=== PATIENT | female | born 1965 | race Two or more races ===

== ENCOUNTER 2018-07-27 11:44 | Day surgery (SDC) | payer BC, OTHER ==
[2018-07-26 11:04] VITALS: BMI 30.9
--- NOTE | 2018-07-27 09:22 | HP ---
History & Physical Update - History History: No Change - Physical Physical: No Change - Assessment Assessment: No Change - Plan Plan: No Change (patient with rectal cancer , at 8 cms. from anal verge , not palpated on rectal examination, for examination under anesthesia.)
[2018-07-27] MEDS ORDERED: MIDAZOLAM HCL 2 MG/2 ML SINGLE DOSE VIAL ONE (13:42)
--- NOTE | 2018-07-27 14:09 | OP ---
Operative Note - Note: Operative Date: 07/27/18 Pre-Operative Diagnosis: Carcinoma of rectum, fibroid uterus, anemia. Operation: Examination under anesthesia, and proctosigmoidoscopy . Findings: Large fibroid uterus, palpable transabdominally , in the suprapubic area. Tumor in rectum , left lateral wall, at 9 cm,. from anal verge to 11cm., 2-3 cm. in length. Surgeon: Elisabeth Mancilla Anesthesiologist/CITRIX LEAD: Anita Loza Anesthesia: MAC Specimens Removed: None Estimated Blood Loss (mls): 0 Operative Report Dictated: Yes
[2018-07-27] MEDS ORDERED: oxyCODONE HCL 5 MG TABLET PO PRN (14:18)
[2018-07-27] MEDS ORDERED: ONDANSETRON 4 MG/2 ML VIAL IVPUSH PRN (14:18)
[2018-07-27 15:30] VITALS: BP 136/85; PULSE 92; TEMP 98.1
--- NOTE | 2018-07-28 10:28 | EKG ---
Test Reason : Blood Pressure : / mmHG Vent. Rate : 088 BPM Atrial Rate : 088 BPM P-R Int : 158 ms QRS Dur : 092 ms QT Int : 382 ms P-R-T Axes : 065 038 000 degrees QTc Int : 462 ms NORMAL SINUS RHYTHM POSSIBLE LEFT ATRIAL ENLARGEMENT LEFT VENTRICULAR HYPERTROPHY NONSPECIFIC ST ABNORMALITY ABNORMAL ECG NO PREVIOUS ECGS AVAILABLE Confirmed by MARINA GEORGE MD ([id number]) on 07/28/2018 10:28:23 AM Referred By: YON MONTE Confirmed By:MARINA GEORGE MD
--- NOTE | 2018-07-28 11:33 | OP ---
DATE OF OPERATION: 07/27/2018 PREOPERATIVE DIAGNOSES: Carcinoma of the rectum, large fibroid uterus, and anemia. POSTOPERATIVE DIAGNOSES: Carcinoma of the rectum, large fibroid uterus, and anemia. OPERATIVE PROCEDURE: Examination under anesthesia and proctosigmoidoscopy. SURGEON: Artur Mancilla MD ANESTHESIA: General anesthesia. OPERATIVE DESCRIPTION: This 52-year-old woman was found to have tumor at 8-10 cm from the anal verge. She was being worked up. She also has a large fibroid uterus with multiple nodules requiring hysterectomy. So, therefore, patient was brought in for examination under anesthesia. She was also scheduled for an MRI and a consultative ultrasound. Patient was given IV sedation, placed in lithotomy position. A bimanual examination was done, with a finger in the rectum, and palpating the suprapubic area. Patient was found to have a large tumor in the suprapubic area, confirming the presence of a large fibroid uterus, which would obstruct and occlude the prerectal space,during the rectal operation. A proctosigmoidoscopy was done with a rigid sigmoidoscope. On examination, the anal sphincter was normal. At about 9 cm from the anal verge, there was a tumor found in the left half of the rectal wall. The mucosa was elevated , raised, and easily bleeding. It occupied less than half the circumference. It extended to a length of about 11 cm from the anal verge. That is about 2 cm in length. The rest of the examination was normal. The patient is scheduled for an MRI and also will get radiation oncology consultation. This tumor is, therefore, amenable to low anterior resection, along with hysterectomy. Martin TORREZ/[id number] MTDD
== END 2018-07-27 15:30 | disposition home or self-care (01) ==
LOC: JASU-SURG 11:44
PROVIDERS: ATTEND Specialist
PROC: 0DJD8ZZ Inspection of Lower Intestinal Tract, Via Natural or Artificial Opening Endoscopic (ICD-10-PCS; principal; 2018-07-27 13:00)
DX: C20 Malignant neoplasm of rectum (principal); D25.9 Leiomyoma of uterus, unspecified; D64.9 Anemia, unspecified
CPT/HCPCS: 84703; 93005; 93010

== ENCOUNTER 2018-12-14 06:38 | Inpatient (IN) | payer BC, OTHER ==
[2018-12-13 17:25] VITALS: BMI 32.2
[2018-12-14] MEDS ORDERED: ROPIVACAINE HCL 0.5% 30ML VIAL ONE (07:21)
[2018-12-14] MEDS ORDERED: DEXAMETHASONE SOD PHOSPHATE/PF 10 MG/ML SDV ONE (07:21)
[2018-12-14] MEDS ORDERED: MIDAZOLAM HCL 2 MG/2 ML SINGLE DOSE VIAL ONE ×2 (07:22)
--- NOTE | 2018-12-14 08:02 | HP ---
History & Physical Update - History History: No Change - Physical Physical: No Change - Assessment Assessment: No Change - Plan Plan: No Change (Initial H&P is complete and accurate from 12/11/[address] Mireya Garay. Will be scanned into her electronic chart JATINDER. No new complaints or medications.)
[2018-12-14] MEDS ORDERED: CEFAZOLIN 2 GM/D5W 2 GM/50 ML ML IVPB ONE (08:03)
[2018-12-14] MEDS ORDERED: DEXAMETHASONE SOD PHOSPHATE 4 MG/1 ML VIAL ONE ×2 (08:42→12:16)
[2018-12-14] MEDS ORDERED: fentaNYL CITRATE 250 MCG/5 ML VIAL ONE (08:43)
[2018-12-14] MEDS ORDERED: LIDOCAINE HCL/PF 2% SDV 5ML VIAL ONE (08:44)
[2018-12-14] MEDS ORDERED: ceFAZolin SODIUM 1 GM VIAL ONE (08:44)
[2018-12-14] MEDS ORDERED: ROCURONIUM BROMIDE 50 MG/5 ML VIAL ONE ×3 (08:45→11:47)
[2018-12-14] MEDS ORDERED: ceFAZolin SODIUM 1 GM VIAL IVPB ONE (08:45)
[2018-12-14] MEDS ORDERED: PROPOFOL 20 ML ONE (08:45)
--- NOTE | 2018-12-14 10:16 | OP ---
Operative Note - Note: Operative Date: 12/14/18 Pre-Operative Diagnosis: Leiomyoma of the uterus Operation: Total Abdominal hysterectomy / Bilateral salpingoophorectomy Findings: Enlarged fibroid uterus with irregular shape Post-Operative Diagnosis: Same as Pre-op Surgeon: Verona Leija Special Police Officer: Bebo Quinteros Anesthesia: General Specimens Removed: Uterus / Cervix / Fallopian tubes / Ovaries Estimated Blood Loss (mls): 100
--- NOTE | 2018-12-14 10:56 | SURG ---
Surgery Rodding Anode Worker Note Rodding Anode Worker: Bebo Quinteros PA-C Date of Service: 12/14/18 Diagnosis: Leiomyoma of the uterus Procedure: Total Abdominal hysterectomy / Bilateral salpingoophorectomy I was present for the entirety of the operative procedure. For further detail, please refer to operative report. Visit type - Case Type Case Type: Scheduled - New patient This patient is new to me today: Yes Date on this admission: 12/14/18
[2018-12-14] MEDS ORDERED: PHENYLEPHRINE HCL 10 MG/1 ML SINGLE DOSE VIAL ONE (11:51)
[2018-12-14] MEDS ORDERED: NEOSTIGMINE METHYLSULFATE 0.5 MG/ML - 10 ML MDV ONE (12:30)
[2018-12-14] MEDS ORDERED: GLYCOPYRROLATE 0.2 MG/1 ML VIAL ONE (12:31)
--- NOTE | 2018-12-14 12:52 | OP ---
Operative Note - Note: Operative Date: 12/14/18 Pre-Operative Diagnosis: Carcinoma of rectosigmoid, s/p Chemoradiation. Operation: Low anterior resection of rectal tumor, with rectosigmoid anastamosis. Findings: Lesion in upper rectum. Post-Operative Diagnosis: Same as Pre-op Surgeon: Elisabeth Mancilla Anesthesiologist/PIE ICER MACHINE: Dez King Anesthesia: General Specimens Removed: 1) Anorectal resection. 2) Anastamotic doughnut.. Estimated Blood Loss (mls): 150 Operative Report Dictated: Yes
[2018-12-14] MEDS ORDERED: fentaNYL 1000 MCG/50 ML *PCA* DISP.SYRIN PCA SCH (13:00)
[2018-12-14] MEDS: HYDROmorphone *PCA* 10MG/50ML DISP.SYRIN PCA SCH ×2 (13:10→23:11)
[2018-12-14] MEDS ORDERED: ONDANSETRON 4 MG/2 ML VIAL IVPUSH PRN (13:11)
[2018-12-14] MEDS ORDERED: PROMETHAZINE HCL 25 MG/1 ML VIAL IVPB PRN ×2 (13:11)
[2018-12-14] MEDS ORDERED: DEXAMETHASONE SOD PHOSPHATE 4 MG/1 ML VIAL IVPUSH PRN (13:11)
[2018-12-14] MEDS: DEXTROSE 5%-LACTATED RINGERS 1,000 ML IV SCH (22:43)
--- NOTE | 2018-12-15 08:40 | PN ---
Progress Note (short form) - Note Progress Note: Anesthesia/pain Pt seen and examined S:Alert and awake comfortable O: Vital Signs Temperature 98.3 F 12/15/18 07:06 Pulse Rate 119 H 12/15/18 07:06 Respiratory Rate 20 12/15/18 07:06 Blood Pressure 129/75 12/15/18 07:06 O2 Sat by Pulse Oximetry (%) 99 12/14/18 21:00 A/P: s/pTAH BSO LAR Doing well post op Uses BRUSH CUTTER Continue current care Michael Boland MD
--- NOTE | 2018-12-15 08:51 | OP ---
DATE OF OPERATION: 12/14/2018 ADDENDUM PROCEDURE: Low anterior resection of rectal tumor with rectosigmoid anastomosis and a total mesorectal excision dissection. The pelvic cavity was inspected, and there was no evidence of metastases of the rectal tumor. The liver was normal. The diaphragm was normal. The small intestine and the rest of the large intestine and intra-abdominal peritoneum was normal with no evidence of tumor. Martin [id number]
[2018-12-15] MEDS: ENOXAPARIN NA (PORCINE) 30 MG/0.3 ML DISP.SYRIN SQ SCH (09:54)
[2018-12-15 10:21] LABS: HEMATOCRIT 31.7 % (32.4-45.2); HEMOGLOBIN 10.9 GM/dL (10.7-15.3); MCH 31.4 pg (25.7-33.7); MCHC 34.3 g/dl (32.0-36.0); MEAN CELL VOLUME 91.5 fl (80-96); MEAN PLT VOLUME 8.7 fl (7.5-11.1); PLATELET COUNT 215 K/MM3 (134-434); RBC 3.47 M/mm3 (3.60-5.2); RDW 15.3 % (11.6-15.6)
[2018-12-15 10:51] LABS: ANION GAP 6 MMOL/L (8-16); BLOOD UREA NITROGEN 8 mg/dL (7-18); CALCIUM 8.1 mg/dL (8.5-10.1); CHLORIDE 101 mmol/L (98-107); CO2 31 mmol/L (21-32); CREATININE 0.6 mg/dL (0.55-1.3); GLUCOSE,RANDOM 115 mg/dL (74-106); POTASSIUM 3.5 mmol/L (3.5-5.1); SODIUM 137 mmol/L (136-145)
[2018-12-15] MEDS: DEXTROSE 5%-LACTATED RINGERS 1,000 ML IV SCH ×3 (10:57→22:05)
--- NOTE | 2018-12-15 10:59 | OP ---
DATE OF OPERATION: 12/14/2018 PREOPERATIVE DIAGNOSIS: Carcinoma of the rectum and rectosigmoid status post chemoradiation. POSTOPERATIVE DIAGNOSES: 1. Carcinoma of the rectum and rectosigmoid status post chemoradiation. 2. Fibroid uterus. OPERATIVE PROCEDURE: Low anterior resection of the rectal tumor/rectosigmoid, with colorectal anastomosis. SURGEON: Artur Mancilla MD SENIOR RECEPTIONIST: Harlan Hoyos MD ANESTHESIA: General anesthesia. OPERATIVE DESCRIPTION: This 53-year-old woman was diagnosed to have rectal cancer 8-12 cm from the anal verge in the upper third of the rectum as well as rectosigmoid. A previous workup included post-treatment MRI that showed no gross tumor in the rectum. There were no suspicious lymph nodes as well. Patient was brought in for low anterior resection of the rectal tumor with a TME excision. Patient also had a large fibroid uterus which was planned to be removed at this procedure by Dr. Leija. Patient had bowel prep preoperatively. Consent was obtained. Risks , benefits, and complications had been discussed with the patient. Patient was given general anesthesia, placed in a partial lithotomy position. Brown catheter was placed in the bladder. The perineum and the abdomen were painted and draped. Dr. Leija did her abdominal hysterectomy, removing the large fibroid uterus. I proceeded to do my part of the procedure after the hysterectomy, and the large fibroid uterus was removed. First, the inferior mesenteric artery was identified at its origin. All fibrofatty tissue around the inferior mesenteric artery was dissected and moved towards the pelvis. This was followed all the way to the sigmoid branches, which were preserved intact. The superior hemorrhoidal artery was ligated, just after the branches to the sigmoid, of the inferior mesentric artery. This was divided between ligatures. This dissection of the mesentery and blood vessels, was then carried all the way to the distal sigmoid, creating a line of demarcation, of the specimen of rectosigmoid to be removed along with its mesentery and lymph nodes, creating a TME resection. All fibrofatty tissue between the iliacs and the posterior abdominal wall, in the sacral hollow, was removed and brought out along with the specimen. Both ureters were identified, and maintained intact. All fibrofatty connective tissue, between the 2 ureters was also removed going down towards the pelvis. Posteriorly, dissection was carried into the sacral hollow, and the dissection was carried all the way down behind the rectum along the sacrococcygeus towards the anal canal. This was then carried around laterally along the lateral pelvic wall, leaving the ureters intact and in continuity. All vessels were then divided between clips, LigaSure, or between 2-0 silk ligature. As the dissection was carried into the pelvis, the rectosigmoid was pulled up cephalad above the pelvis. This was carried down laterally, dissecting lateraaly from the sacral hollow, dividing the middle colic vessels between ligatures and the LigaSure. Anteriorly, the vaginal cuff was left intact after hysterectomy. Dissection was carried around the rectum anteriorly, and freeing the vaginal wall from the rectum. Prior to the start of surgery, a rectal examination was done, and no palpable tumor was identified for at least 7 -8 cm from the anal verge. In the pelvis there was bulky, indurated area, but no gross tumor was seen or palpated. After securing the dissection around the rectum anteriorly, this was carried all the way down to the lower reaches of the rectum. Here the fibrofatty tissue around the rectum was divided, and the dissection carried towards the rectum. Once this was done, the rectum was identified. After placing the finger in the rectum, the dissection had been carried all the way down, reaching up to the lower 4-5 cm of the rectum. Once all fibrofatty contents were dissected to the rectal wall circumferentially, a staple instrument, right angle type,(TA) was used to cut across the rectum. This was about at least 4-5 cm distal to the palpable indurated area of the rectosigmoid. The rectal wall, at the site of resection, appeared normal. The TA-55 was applied across the rectum and the distal rectum divided. After this, the sigmoid was divided at about 10 cms above the rectum, leaving the proximal sigmoid, intact with its blood supply. This was divided using the PATRICIA stapling device. Once this was done, the specimen consisting of the upper two-thirds of the rectum, the rectosigmoid and lower part of the sigmoid colon, along with the fibrofatty tissue around the rectum, and also fibrofatty tissue from one ureter to the other and all lymph nodes in the mesorectum along the inferior mesenteric artery all the way down to the origin as well as along the superior, and middle hemorrhoidal vessels was removed as specimen. This was sent to Pathology. After this, the EEA staplind device was used to anastamose the proximal sigmoid into the rectum. The proximal sigmoid with the aid of the PATRICIA stapling device was then anastomosed to the rectum. The instrument for applying a pursestring suture around the proximal segment of the anastomosis, viz sigmoid colon was placed. The PATRICIA amy were removed and the proximal sigmoid lumen was opened. The distal anvil of the EEA stapling device was then introduced into the lumen of the sigmoid, and the pursestring suture tied around the post of the EEA stapling device. There was good bleeding from the edges of the proximal sigmoid. Next, the EEA stapler was introduced from the anus and brought out through the center piece of the rectal stump. The EEA stapling device was then opened, and the segment of the descending sigmoid was then brought down and connected ( attached) to the EEA stapling device. The instruments were then turned, and prepared for anastomosis by locking the 2 edges of the proximal sigmoid and the distal rectum. The EEA was then fired after it was turned adequately, until the green mckay was seen. After the anastomosis, the EEA was unscrewed and the instrument pulled out of the anus. There were 2 complete circular donuts in the specimen which were sent to Pathology. The main specimen consisting of the rectal tumor, the mesorectum, and the rectosigmoid, and proximal two thirds , of the rectum, with the TME resection was sent to Pathology. Hemostasis was satisfactory at the end of the procedure. A red rubber catheter was then inserted through the anus and passed through the anastomosis. The colon was then filled with air and saline was poured into the pelvic cavity. There was no leak of air from the anastomosis, and the proximal segment of the colon was inflated on insufflating air, thus satisfying the patency and continuity of the anastomosis. The descending colon was mobilized and then was placed down into the pelvis, where there was no tension at the anastomosis. The abdominal cavity was thoroughly irrigated with normal saline of at least 3-5 L. Hemostasis was satisfactory. There was no bleeding. Both ureters were intact. Urine output was adequate. The abdomen was then closed with a No. 1 looped PDS suture. Incidentally, the patient had an umbilical hernia repair in the past, and in making the skin incisions over the abdomen, the mesentery was divided and reapproximated at the time of the closure. The abdomen was satisfactorily closed with No. 1 running looped PDS sutures. Subcutaneous fat was again irrigated with normal saline, and skin was approximated with amy. Sponge count, instrument count was correct. Patient tolerated the procedure well, was extubated and sent to recovery room in satisfactory and stable condition. Estimated blood loss for this procedure was less than [address] Harlan Hoyos was an baking assistant and stayed throughout the procedure. Martin TORREZ/[id number] cc: MD Mireya Ascencio MD MTDD
--- NOTE | 2018-12-15 11:07 | PN ---
Progress Note, Physician History of Present Illness: pt seen/ examined chart reviewed awake/ comfortable says pain ok - Current Medication List Current Medications: Active Medications Dexamethasone Sodium Phosphate (Decadron Injection -) 4 mg IVPUSH ONCE PRN PRN Reason: NAUSEA AND/OR VOMITING Diphenhydramine HCl (Benadryl Injection -) 12.5 mg IVPUSH ONCE PRN PRN Reason: FOR ITCHING Enoxaparin Sodium (Lovenox -) [address] [facility] Last Admin: 12/15/18 09:54 Dose: 30 mg Fentanyl (Sublimaze Injection -) 25 mcg IVPUSH [id number] PRN PRN Reason: PAIN-PACU ORDER X 4 DOSES ONLY Hydromorphone HCl (Dilaudid Seed Cleaning Machine Operator -) 0 mg RUBBER BLOCK LAYER RUBBER BLOCK LAYER [facility]; Protocol Stop: 12/21/18 13:11 Last Admin: 12/14/18 23:11 Dose: Not Given Dextrose/Lactated Ringer's (D5-Lr -) 1,000 mls @ 100 mls/hr IV ASDIR [facility] Last Admin: 12/15/18 10:57 Dose: 100 mls/hr Ondansetron HCl (Zofran Injection) 4 mg IVPUSH Q4H PRN PRN Reason: NAUSEA AND/OR VOMITING Promethazine HCl (Phenergan Injection -) 12.5 mg IVPB Q6H PRN PRN Reason: NAUSEA-FOR RESCUE AFTER 15 MIN - Objective Vital Signs: Vital Signs Temperature 98.3 F 12/15/18 07:06 Pulse Rate 119 H 12/15/18 07:06 Respiratory Rate 20 12/15/18 07:06 Blood Pressure 129/75 12/15/18 07:06 O2 Sat by Pulse Oximetry (%) 99 12/14/18 21:00 Constitutional: Yes: Calm Neck: Yes: Supple Cardiovascular: Yes: Regular Rate and Rhythm Respiratory: Yes: CTA Bilaterally Gastrointestinal: Yes: Other (dressing +) Edema: No Neurological: Yes: Alert Psychiatric: Yes: Alert Labs: CBC, BMP 12/15/18 08:30 12/15/18 08:30 Problem List - Problems (1) Encounter for postoperative follow-up after cancer surgery Code(s): Z08 - ENCNTR FOR FOLLOW-UP EXAM AFTER TRTMT FOR MALIGNANT NEOPLASM (2) Hypertension Code(s): I10 - ESSENTIAL (PRIMARY) HYPERTENSION Assessment/Plan pod # 1 Pre-Operative Diagnosis: Carcinoma of rectosigmoid, s/p Chemoradiation. Operation: Low anterior resection of rectal tumor, with rectosigmoid anastamosis s/p Abdominal Hystrectomy/ Bilateral salpingo oophrectomy stable pain control fluids dvt prophylaxis hold bp meds for now will follow
[2018-12-15] MEDS ORDERED: HYDROmorphone *PCA* 10MG/50ML DISP.SYRIN PCA ONE (11:09)
[2018-12-15] MEDS: HYDROmorphone *PCA* 10MG/50ML DISP.SYRIN PCA SCH ×2 (11:14→20:34)
--- NOTE | 2018-12-15 14:07 | PN ---
Progress Note, Physician - Current Medication List Current Medications: Active Medications Dexamethasone Sodium Phosphate (Decadron Injection -) 4 mg IVPUSH ONCE PRN PRN Reason: NAUSEA AND/OR VOMITING Diphenhydramine HCl (Benadryl Injection -) 12.5 mg IVPUSH ONCE PRN PRN Reason: FOR ITCHING Enoxaparin Sodium (Lovenox -) 30 mg SQ DAILY [facility] Last Admin: 12/15/18 09:54 Dose: 30 mg Fentanyl (Sublimaze Injection -) 25 mcg IVPUSH [id number] PRN PRN Reason: PAIN-PACU ORDER X 4 DOSES ONLY Hydromorphone HCl (Dilaudid Rotary Dryer Operator -) 0 mg TILE SORTER TILE SORTER [facility]; Protocol Stop: 12/21/18 13:11 Last Admin: 12/15/18 11:14 Dose: 0.2 mg Dextrose/Lactated Ringer's (D5-Lr -) 1,000 mls @ 100 mls/hr IV ASDIR [facility] Last Admin: 12/15/18 10:57 Dose: 100 mls/hr Ondansetron HCl (Zofran Injection) 4 mg IVPUSH Q4H PRN PRN Reason: NAUSEA AND/OR VOMITING Promethazine HCl (Phenergan Injection -) 12.5 mg IVPB Q6H PRN PRN Reason: NAUSEA-FOR RESCUE AFTER 15 MIN - Objective Vital Signs: Vital Signs Temperature 98.5 F 12/15/18 13:57 Pulse Rate 94 H 12/15/18 13:57 Respiratory Rate 20 12/15/18 11:14 Blood Pressure 112/74 12/15/18 13:57 O2 Sat by Pulse Oximetry (%) 95 12/15/18 09:00 Labs: CBC, BMP 12/15/18 08:30 12/15/18 08:30 Assessment/Plan Surgery: Patient is alert and oriented. Has been out of bed , Surgical procedure explained. No calf tenderness. Wound is clean. Labs are normal. Will D/C Brown catheter, If unable to void will replace Brown. Normal postoperative course. Postop day 1.
[2018-12-16] MEDS: DEXTROSE 5%-LACTATED RINGERS 1,000 ML IV SCH (06:44)
[2018-12-16 07:43] LABS: BASO % 0.5 % (0-2.0); EOS % 1.2 % (0-4.5); HEMATOCRIT 28.6 % (32.4-45.2); HEMOGLOBIN 9.8 GM/dL (10.7-15.3); LYMPH % 7.8 % (8-40); MCH 31.4 pg (25.7-33.7); MCHC 34.2 g/dl (32.0-36.0); MEAN CELL VOLUME 91.9 fl (80-96); MEAN PLT VOLUME 8.7 fl (7.5-11.1); MONO % 7.7 % (3.8-10.2); NEUT % 82.8 % (42.8-82.8); PLATELET COUNT 180 K/MM3 (134-434); RBC 3.11 M/mm3 (3.60-5.2); RDW 15.6 % (11.6-15.6); WHITE BLOOD COUNT 5.5 K/mm3 (4.0-10.0)
[2018-12-16 07:54] LABS: ALBUMIN 2.5 g/dl (3.4-5.0); ALK PHOS 65 U/L (45-117); ANION GAP 5 MMOL/L (8-16); BILIRUBIN,TOTAL 0.4 mg/dL (0.2-1); BLOOD UREA NITROGEN 9 mg/dL (7-18); CALCIUM 7.7 mg/dL (8.5-10.1); CHLORIDE 103 mmol/L (98-107); CO2 31 mmol/L (21-32); CREATININE 0.7 mg/dL (0.55-1.3); GLUCOSE,RANDOM 111 mg/dL (74-106); POTASSIUM 3.3 mmol/L (3.5-5.1); SGOT/AST 13 U/L (15-37); SGPT/ALT 18 U/L (13-61); SODIUM 139 mmol/L (136-145); TOT PROT 5.6 g/dl (6.4-8.2)
--- NOTE | 2018-12-16 09:32 | PN ---
Progress Note (SOAP) - Subjective Chief Complaint: Pt without complaints - Current Medications Current Medications: Active Medications Dexamethasone Sodium Phosphate (Decadron Injection -) 4 mg IVPUSH ONCE PRN PRN Reason: NAUSEA AND/OR VOMITING Diphenhydramine HCl (Benadryl Injection -) 12.5 mg IVPUSH ONCE PRN PRN Reason: FOR ITCHING Enoxaparin Sodium (Lovenox -) 30 mg SQ DAILY [facility] Last Admin: 12/15/18 09:54 Dose: 30 mg Hydromorphone HCl (Dilaudid Party Host -) 0 mg BLACK AND WHITE PRINTER OPERATOR BLACK AND WHITE PRINTER OPERATOR [facility]; Protocol Stop: 12/21/18 13:11 Last Admin: 12/15/18 20:34 Dose: Not Given Dextrose/Lactated Ringer's (D5-Lr -) 1,000 mls @ 100 mls/hr IV ASDIR [facility] Last Admin: 12/16/18 06:44 Dose: 100 mls/hr Ondansetron HCl (Zofran Injection) 4 mg IVPUSH Q4H PRN PRN Reason: NAUSEA AND/OR VOMITING Promethazine HCl (Phenergan Injection -) 12.5 mg IVPB Q6H PRN PRN Reason: NAUSEA-FOR RESCUE AFTER 15 MIN - Objective Vital Signs: Vital Signs Temperature 99.8 F H 12/16/18 06:05 Pulse Rate 102 H 12/16/18 06:05 Respiratory Rate 20 12/16/18 06:05 Blood Pressure 133/72 12/16/18 06:05 O2 Sat by Pulse Oximetry (%) 96 12/15/18 21:00 Constitutional: Yes: Well Nourished, No Distress Gastrointestinal: Yes: Soft (amy intact no drainage) Musculoskeletal: Yes: WNL Extremities: Yes: WNL Labs Lab Results: CBC, BMP 12/16/18 06:15 12/16/18 06:15 Problem List - Problems (1) Encounter for postoperative follow-up after cancer surgery Code(s): Z08 - ENCNTR FOR FOLLOW-UP EXAM AFTER TRTMT FOR MALIGNANT NEOPLASM Assessment/Plan POD 2 Stable SP colon rectal surgery due to Ca SP hysterectomy stable Plan OOB continue present management
[2018-12-16] MEDS ORDERED: ACETAMINOPHEN 1000 MG/100 ML VIAL (NON FORMULARY) IVPB PRN (09:58)
--- NOTE | 2018-12-16 10:03 | PN ---
Progress Note (short form) - Note Progress Note: Anesthesiology Pain Service 53 y.o. woman POD#2 s/p MAN-BSO with low anterior resection under GA with post- op FRONT OFFICE SUPERVISOR. She is sleeping comfortably this morning, no ON issues. VSS. No n/v. She is still NPO but RN states that she would be able to swallow pills if needed; she hasn't required FRONT OFFICE SUPERVISOR very much. 53 y.o. with stable post-operative course. Will d/c FRONT OFFICE SUPERVISOR and trial pain management with PO analgesics as well as IV acetaminophen. Please consult anesthesiology if reevaluation of pain management is needed. Thank you.
[2018-12-16] MEDS: oxyCODONE HCL 10 MG SUSTAINED ACTING TABLET PO SCH ×2 (10:31→21:11)
[2018-12-16] MEDS: ENOXAPARIN NA (PORCINE) 30 MG/0.3 ML DISP.SYRIN SQ SCH (10:32)
--- NOTE | 2018-12-16 10:48 | PN ---
Progress Note (short form) - Note Progress Note: pt seen/ examined sitting in chair pod # 2 comfortable low grade temp Vital Signs Temp 99.8 F H 12/16/18 06:05 Pulse 102 H 12/16/18 06:05 Resp 20 12/16/18 06:05 BP 133/72 12/16/18 06:05 Pulse Ox 96 12/15/18 21:00 Intake & Output 12/15/18 12/15/18 12/16/18 11:59 23:59 11:59 Intake Total 1200 0 1200 Output Total 600 500 220 Balance 600 -500 980 Intake: IV 1200 1200 D5-Lr - 1,000 ml @ 100 1200 1200 mls/hr IV [facility]IR [facility] Rx#: [id number] Oral 0 0 Output: Urine 600 500 220 Brown 600 350 Void 150 220 Other: Voiding Method Toilet Toilet Bowel Movement No Active Medications Acetaminophen (Ofirmev Injection -) 1,000 mg IVPB Q6H PRN PRN Reason: FEVER Dexamethasone Sodium Phosphate (Decadron Injection -) 4 mg IVPUSH ONCE PRN PRN Reason: NAUSEA AND/OR VOMITING Diphenhydramine HCl (Benadryl Injection -) 12.5 mg IVPUSH ONCE PRN PRN Reason: FOR ITCHING Enoxaparin Sodium (Lovenox -) 30 mg SQ DAILY [facility] Last Admin: 12/16/18 10:32 Dose: 30 mg Dextrose/Lactated Ringer's (D5-Lr+20 Meq Kcl -) 20 meq in 1,000 mls @ 100 mls/ hr IV [facility] Ondansetron HCl (Zofran Injection) 4 mg IVPUSH Q4H PRN PRN Reason: NAUSEA AND/OR VOMITING Oxycodone HCl (Roxicodone -) 5 mg PO Q3H PRN PRN Reason: PAIN LEVEL 1-5 Oxycodone HCl (Roxicodone -) 10 mg PO Q3H PRN PRN Reason: PAIN LEVEL 6-10 Oxycodone HCl (Oxycontin -) 10 mg PO BID [facility] Stop: 12/19/18 09:57 Last Admin: 12/16/18 10:31 Dose: 10 mg Promethazine HCl (Phenergan Injection -) 12.5 mg IVPB Q6H PRN PRN Reason: NAUSEA-FOR RESCUE AFTER 15 MIN CBC, BMP 12/16/18 06:15 12/16/18 06:15 Physical Exam Constitutional: Yes: Calm Neck: Yes: Supple Cardiovascular: Yes: Regular Rate and Rhythm Respiratory: Yes: CTA Bilaterally Gastrointestinal: Yes: Other (dressing +). quiet Edema: No Neurological: Yes: Alert Psychiatric: Yes: Alert Assessment/Plan pod # 2 s/p Abdominal Hystrectomy/ Bilateral salpingo oophrectomy stable pain control fluids-- change with k supplement dvt prophylaxis hold bp meds will follow continue present care Problem List - Problems (1) Encounter for postoperative follow-up after cancer surgery Code(s): Z08 - ENCNTR FOR FOLLOW-UP EXAM AFTER TRTMT FOR MALIGNANT NEOPLASM (2) Hypertension Code(s): I10 - ESSENTIAL (PRIMARY) HYPERTENSION
[2018-12-16] MEDS: D5-LR+20 MEQ KCL - 20 MEQ/1,000 ML INFUS.BAG IV SCH ×2 (13:01→22:06)
--- NOTE | 2018-12-16 13:02 | PN ---
Progress Note, Physician - Current Medication List Current Medications: Active Medications Acetaminophen (Ofirmev Injection -) 1,000 mg IVPB Q6H PRN PRN Reason: FEVER Dexamethasone Sodium Phosphate (Decadron Injection -) 4 mg IVPUSH ONCE PRN PRN Reason: NAUSEA AND/OR VOMITING Diphenhydramine HCl (Benadryl Injection -) 12.5 mg IVPUSH ONCE PRN PRN Reason: FOR ITCHING Enoxaparin Sodium (Lovenox -) 30 mg SQ DAILY [facility] Last Admin: 12/16/18 10:32 Dose: 30 mg Dextrose/Lactated Ringer's (D5-Lr+20 Meq Kcl -) 20 meq in 1,000 mls @ 100 mls/ hr IV ASDIR [facility] Ondansetron HCl (Zofran Injection) 4 mg IVPUSH Q4H PRN PRN Reason: NAUSEA AND/OR VOMITING Oxycodone HCl (Roxicodone -) 5 mg PO Q3H PRN PRN Reason: PAIN LEVEL 1-5 Oxycodone HCl (Roxicodone -) 10 mg PO Q3H PRN PRN Reason: PAIN LEVEL 6-10 Oxycodone HCl (Oxycontin -) 10 mg PO BID [facility] Stop: 12/19/18 09:57 Last Admin: 12/16/18 10:31 Dose: 10 mg Promethazine HCl (Phenergan Injection -) 12.5 mg IVPB Q6H PRN PRN Reason: NAUSEA-FOR RESCUE AFTER 15 MIN - Objective Vital Signs: Vital Signs Temperature 99.4 F 12/16/18 09:00 Pulse Rate 112 H 12/16/18 09:00 Respiratory Rate 20 12/16/18 09:00 Blood Pressure 112/61 12/16/18 09:00 O2 Sat by Pulse Oximetry (%) 92 L 12/16/18 09:00 Labs: CBC, BMP 12/16/18 06:15 12/16/18 06:15 Assessment/Plan Surgery: Afebrile, No nausea, no vomiting. Abdomen is soft , not distended. has not passed flatus. K 3.3 , supplemented. Keep NPO. Ambulate. Voiding urine. Has not passed flatus. CBC is normal.
[2018-12-16] MEDS: oxyCODONE HCL 5 MG TABLET PO PRN (17:33)
[2018-12-17 07:57] LABS: BASO % 0.5 % (0-2.0); HEMATOCRIT 28.2 % (32.4-45.2); HEMOGLOBIN 9.6 GM/dL (10.7-15.3); LYMPH % 9.3 % (8-40); MCH 31.4 pg (25.7-33.7); MCHC 33.9 g/dl (32.0-36.0); MEAN CELL VOLUME 92.6 fl (80-96); MONO % 8.6 % (3.8-10.2); NEUT % 74.6 % (42.8-82.8); PLATELET COUNT 178 K/MM3 (134-434); RBC 3.04 M/mm3 (3.60-5.2); RDW 14.9 % (11.6-15.6); WHITE BLOOD COUNT 4.1 K/mm3 (4.0-10.0)
[2018-12-17 08:17] LABS: ALBUMIN 2.4 g/dl (3.4-5.0); ALK PHOS 65 U/L (45-117); ANION GAP 5 MMOL/L (8-16); BILIRUBIN,TOTAL 0.7 mg/dL (0.2-1); BLOOD UREA NITROGEN 7 mg/dL (7-18); CHLORIDE 104 mmol/L (98-107); CO2 30 mmol/L (21-32); CREATININE 0.6 mg/dL (0.55-1.3); GLUCOSE,RANDOM 101 mg/dL (74-106); POTASSIUM 3.8 mmol/L (3.5-5.1); SGOT/AST 14 U/L (15-37); SGPT/ALT 17 U/L (13-61); SODIUM 139 mmol/L (136-145); TOT PROT 5.5 g/dl (6.4-8.2)
[2018-12-17] MEDS: oxyCODONE HCL 10 MG SUSTAINED ACTING TABLET PO SCH ×2 (09:38→21:20)
[2018-12-17] MEDS: ENOXAPARIN NA (PORCINE) 30 MG/0.3 ML DISP.SYRIN SQ SCH (09:38)
[2018-12-17] MEDS: D5-LR+20 MEQ KCL - 20 MEQ/1,000 ML INFUS.BAG IV SCH ×2 (10:22→21:19)
--- NOTE | 2018-12-17 11:16 | PN ---
Progress Note (short form) - Note Progress Note: pt seen/ examined chart reviewed awake/ comfortable not passing gas yet denies pain Vital Signs Temp 98.6 F 12/17/18 06:09 Pulse 109 H 12/17/18 10:00 Resp 18 12/17/18 10:00 BP 126/75 12/17/18 10:00 Pulse Ox 94 L 12/16/18 21:00 Intake & Output 12/16/18 12/16/18 12/17/18 11:59 23:59 11:59 Intake Total 1200 0 1200 Output Total 520 Balance 680 0 1200 Intake: IV 1200 1200 D5-LR+20 MEQ KCL - 20 meq 1200 In 1,000 ml @ 100 mls/hr IV [facility] Rx#: [id number] D5-Lr - 1,000 ml @ 100 1200 mls/hr IV [facility] Rx#: [id number] Oral 0 0 Output: Urine 520 Void 520 Other: Voiding Method Toilet Toilet Toilet # Unmeasured Voids Void 1 Bowel Movement No Active Medications Acetaminophen (Ofirmev Injection -) 1,000 mg IVPB Q6H PRN PRN Reason: FEVER Last Admin: 12/17/18 07:51 Dose: 1,000 mg Dexamethasone Sodium Phosphate (Decadron Injection -) 4 mg IVPUSH ONCE PRN PRN Reason: NAUSEA AND/OR VOMITING Diphenhydramine HCl (Benadryl Injection -) 12.5 mg IVPUSH ONCE PRN PRN Reason: FOR ITCHING Enoxaparin Sodium (Lovenox -) 30 mg SQ DAILY [facility] Last Admin: 12/17/18 09:38 Dose: 30 mg Dextrose/Lactated Ringer's (D5-Lr+20 Meq Kcl -) 20 meq in 1,000 mls @ 100 mls/ hr IV [facility] Last Admin: 12/17/18 10:22 Dose: 100 mls/hr Ondansetron HCl (Zofran Injection) 4 mg IVPUSH Q4H PRN PRN Reason: NAUSEA AND/OR VOMITING Oxycodone HCl (Roxicodone -) 5 mg PO Q3H PRN PRN Reason: PAIN LEVEL 1-5 Last Admin: 12/16/18 17:33 Dose: 5 mg Oxycodone HCl (Roxicodone -) 10 mg PO Q3H PRN PRN Reason: PAIN LEVEL 6-10 Oxycodone HCl (Oxycontin -) 10 mg PO BID [facility] Stop: 12/19/18 09:57 Last Admin: 12/17/18 09:38 Dose: 10 mg Promethazine HCl (Phenergan Injection -) 12.5 mg IVPB Q6H PRN PRN Reason: NAUSEA-FOR RESCUE AFTER 15 MIN CBC, BMP 12/17/18 07:00 12/17/18 07:00 Physical Exam Constitutional: Yes: awake/ comfortable Neck: Yes: Supple Cardiovascular: Yes: Regular Rate and Rhythm Respiratory: Yes: CTA Bilaterally Gastrointestinal: Yes: Other (dressing +). quiet Edema: No Neurological: Yes: Alert Psychiatric: Yes: Alert Assessment/Plan pod # 3 s/p Abdominal Hystrectomy/ Bilateral salpingo oophrectomy stable pain control Labs --ok dvt prophylaxis BP ok will follow continue present care npo till passes gas discussed with Incentive spirometry Problem List - Problems (1) Encounter for postoperative follow-up after cancer surgery Code(s): Z08 - ENCNTR FOR FOLLOW-UP EXAM AFTER TRTMT FOR MALIGNANT NEOPLASM (2) Hypertension Code(s): I10 - ESSENTIAL (PRIMARY) HYPERTENSION
--- NOTE | 2018-12-17 16:31 | PN ---
Progress Note, Physician - Current Medication List Current Medications: Active Medications Acetaminophen (Ofirmev Injection -) 1,000 mg IVPB Q6H PRN PRN Reason: FEVER Last Admin: 12/17/18 07:51 Dose: 1,000 mg Dexamethasone Sodium Phosphate (Decadron Injection -) 4 mg IVPUSH ONCE PRN PRN Reason: NAUSEA AND/OR VOMITING Diphenhydramine HCl (Benadryl Injection -) 12.5 mg IVPUSH ONCE PRN PRN Reason: FOR ITCHING Enoxaparin Sodium (Lovenox -) 30 mg SQ DAILY [facility] Last Admin: 12/17/18 09:38 Dose: 30 mg Dextrose/Lactated Ringer's (D5-Lr+20 Meq Kcl -) 20 meq in 1,000 mls @ 100 mls/ hr IV [facility] Last Admin: 12/17/18 10:22 Dose: 100 mls/hr Ondansetron HCl (Zofran Injection) 4 mg IVPUSH Q4H PRN PRN Reason: NAUSEA AND/OR VOMITING Oxycodone HCl (Roxicodone -) 5 mg PO Q3H PRN PRN Reason: PAIN LEVEL 1-5 Last Admin: 12/16/18 17:33 Dose: 5 mg Oxycodone HCl (Roxicodone -) 10 mg PO Q3H PRN PRN Reason: PAIN LEVEL 6-10 Oxycodone HCl (Oxycontin -) 10 mg PO BID [facility] Stop: 12/19/18 09:57 Last Admin: 12/17/18 09:38 Dose: 10 mg Promethazine HCl (Phenergan Injection -) 12.5 mg IVPB Q6H PRN PRN Reason: NAUSEA-FOR RESCUE AFTER 15 MIN - Objective Vital Signs: Vital Signs Temperature 97.9 F 12/17/18 14:00 Pulse Rate 89 12/17/18 14:00 Respiratory Rate 20 12/17/18 14:00 Blood Pressure 124/72 12/17/18 14:00 O2 Sat by Pulse Oximetry (%) 94 L 12/16/18 21:00 Labs: CBC, BMP 12/17/18 07:00 12/17/18 07:00 Assessment/Plan Patient is afebrile. Patient has abdominal cramps. Will resume oral liquids tomorrow.
[2018-12-17] MEDS: oxyCODONE HCL 5 MG TABLET PO PRN ×2 (17:58→18:52)
[2018-12-18] MEDS: oxyCODONE HCL 5 MG TABLET PO PRN (06:31)
[2018-12-18] MEDS: D5-LR+20 MEQ KCL - 20 MEQ/1,000 ML INFUS.BAG IV SCH ×2 (06:32→21:26)
[2018-12-18 07:51] LABS: BASO % 0.4 % (0-2.0); EOS % 7.3 % (0-4.5); HEMATOCRIT 28.6 % (32.4-45.2); HEMOGLOBIN 10.1 GM/dL (10.7-15.3); LYMPH % 7.4 % (8-40); MCH 31.9 pg (25.7-33.7); MCHC 35.2 g/dl (32.0-36.0); MEAN CELL VOLUME 90.8 fl (80-96); MEAN PLT VOLUME 7.7 fl (7.5-11.1); MONO % 6.9 % (3.8-10.2); PLATELET COUNT 180 K/MM3 (134-434); RBC 3.15 M/mm3 (3.60-5.2); RDW 14.5 % (11.6-15.6); WHITE BLOOD COUNT 4.7 K/mm3 (4.0-10.0)
[2018-12-18 08:41] LABS: ALBUMIN 2.6 g/dl (3.4-5.0); ALK PHOS 68 U/L (45-117); ANION GAP 9 MMOL/L (8-16); BILIRUBIN,TOTAL 0.8 mg/dL (0.2-1); BLOOD UREA NITROGEN 5 mg/dL (7-18); CALCIUM 8.3 mg/dL (8.5-10.1); CHLORIDE 102 mmol/L (98-107); CO2 25 mmol/L (21-32); CREATININE 0.6 mg/dL (0.55-1.3); GLUCOSE,RANDOM 116 mg/dL (74-106); POTASSIUM 3.8 mmol/L (3.5-5.1); SGOT/AST 13 U/L (15-37); SGPT/ALT 16 U/L (13-61); SODIUM 135 mmol/L (136-145); TOT PROT 5.9 g/dl (6.4-8.2)
[2018-12-18] MEDS: ENOXAPARIN NA (PORCINE) 30 MG/0.3 ML DISP.SYRIN SQ SCH (10:10)
[2018-12-18] MEDS: oxyCODONE HCL 10 MG SUSTAINED ACTING TABLET PO SCH ×2 (10:36→21:26)
--- NOTE | 2018-12-18 10:50 | PN ---
Progress Note, Physician - Current Medication List Current Medications: Active Medications Acetaminophen (Ofirmev Injection -) 1,000 mg IVPB Q6H PRN PRN Reason: FEVER Last Admin: 12/17/18 07:51 Dose: 1,000 mg Dexamethasone Sodium Phosphate (Decadron Injection -) 4 mg IVPUSH ONCE PRN PRN Reason: NAUSEA AND/OR VOMITING Diphenhydramine HCl (Benadryl Injection -) 12.5 mg IVPUSH ONCE PRN PRN Reason: FOR ITCHING Enoxaparin Sodium (Lovenox -) 30 mg SQ DAILY [facility] Last Admin: 12/18/18 10:10 Dose: 30 mg Dextrose/Lactated Ringer's (D5-Lr+20 Meq Kcl -) 20 meq in 1,000 mls @ 100 mls/ hr IV ASDIR [facility] Last Admin: 12/18/18 06:32 Dose: 100 mls/hr Ondansetron HCl (Zofran Injection) 4 mg IVPUSH Q4H PRN PRN Reason: NAUSEA AND/OR VOMITING Oxycodone HCl (Roxicodone -) 5 mg PO Q3H PRN PRN Reason: PAIN LEVEL 1-5 Last Admin: 12/16/18 17:33 Dose: 5 mg Oxycodone HCl (Roxicodone -) 10 mg PO Q3H PRN PRN Reason: PAIN LEVEL 6-10 Last Admin: 12/18/18 06:31 Dose: 10 mg Oxycodone HCl (Oxycontin -) 10 mg PO BID [facility] Stop: 12/19/18 09:57 Last Admin: 12/18/18 10:36 Dose: 10 mg Promethazine HCl (Phenergan Injection -) 12.5 mg IVPB Q6H PRN PRN Reason: NAUSEA-FOR RESCUE AFTER 15 MIN - Objective Vital Signs: Vital Signs Temperature 98.9 F 12/18/18 05:51 Pulse Rate 102 H 12/18/18 05:51 Respiratory Rate 19 12/18/18 05:51 Blood Pressure 137/76 12/18/18 05:51 O2 Sat by Pulse Oximetry (%) 94 L 12/17/18 21:00 Labs: CBC, BMP 12/18/18 07:15 12/18/18 07:15 Assessment/Plan Po day #4' Wound is clean, Has had a bowel movement. Pathology pending. Stared on liquids by mouth , Progress feeding as tolerated. Discharge planning, possible discharge in am.
--- NOTE | 2018-12-18 11:30 | PN ---
Progress Note (short form) - Note Progress Note: Events noted No pain she is tolerating liquids had bm today no nausea Vital Signs - 24 hr 12/17/18 12/17/18 12/17/18 14:00 18:00 21:00 Temperature 97.9 F 98.3 F Pulse Rate 89 108 H Respiratory 20 20 20 Rate Blood Pressure 124/72 138/90 O2 Sat by Pulse 94 L Oximetry (%) 12/18/18 12/18/18 01:38 05:51 Temperature 98.2 F 98.9 F Pulse Rate 101 H 102 H Respiratory 20 19 Rate Blood Pressure 129/81 137/76 O2 Sat by Pulse Oximetry (%) Current Medications Generic Name Dose Route Start Last Admin Trade Name Freq PRN Reason Stop Dose Admin Acetaminophen 1,000 mg 12/16/18 09:58 12/17/18 07:51 Ofirmev Injection - IVPB 1,000 mg Q6H PRN Administration FEVER Dexamethasone Sodium Phosphate 4 mg 12/14/18 13:11 Decadron Injection - IVPUSH ONCE PRN NAUSEA AND/OR VOMITING Diphenhydramine HCl 12.5 mg 12/14/18 13:11 Benadryl Injection - IVPUSH ONCE PRN FOR ITCHING Enoxaparin Sodium 30 mg 12/15/18 10:00 12/18/18 10:10 Lovenox - SQ 30 mg DAILY [facility] Administration Dextrose/Lactated Ringer's 20 meq in 1,000 mls @ 100 mls/hr 12/16/18 11:00 06:32 D5-Lr+20 Meq Kcl - IV 100 mls/hr [facility] Administration Ondansetron HCl 4 mg 12/14/18 13:11 Zofran Injection IVPUSH Q4H PRN NAUSEA AND/OR VOMITING Oxycodone HCl 5 mg 12/16/18 09:57 12/16/18 17:33 Roxicodone - PO 5 mg Q3H PRN Administration PAIN LEVEL 1-5 Oxycodone HCl 10 mg 12/16/18 09:57 12/18/18 06:31 Roxicodone - PO 10 mg Q3H PRN Administration PAIN LEVEL 6-10 Oxycodone HCl 10 mg 12/16/18 10:00 12/18/18 10:36 Oxycontin - PO 12/19/18 09:57 10 mg BID [facility] Administration Promethazine HCl 12.5 mg 12/14/18 13:11 Phenergan Injection - IVPB Q6H PRN NAUSEA-FOR RESCUE AFTER 15 MIN Laboratory Results - last 24 hr 12/18/18 12/18/18 07:15 07:15 WBC 4.7 RBC 3.15 L Hgb 10.1 L Hct 28.6 L MCV 90.8 MCH 31.9 MCHC 35.2 RDW 14.5 Plt Count 180 MPV 7.7 Absolute Neuts (auto) 3.7 Neutrophils % 78.0 Lymphocytes % 7.4 L D Monocytes % 6.9 Eosinophils % 7.3 H Basophils % 0.4 Nucleated RBC % 0 Sodium 135 L Potassium 3.8 Chloride 102 Carbon Dioxide 25 Anion Gap 9 BUN 5 L Creatinine 0.6 Creat Clearance w eGFR > 60 Random Glucose 116 H Calcium 8.3 L Total Bilirubin 0.8 AST 13 L ALT 16 Alkaline Phosphatase 68 Total Protein 5.9 L Albumin 2.6 L S1 S2 RRR Lungs clear Abd- soft, NT, BS+ dressing in place trace edema PLAN decrease rate of iv fluids advance diet as tolerated spoke with surgery Possible dc in AM Problem List - Problems (1) Encounter for postoperative follow-up after cancer surgery Code(s): Z08 - ENCNTR FOR FOLLOW-UP EXAM AFTER TRTMT FOR MALIGNANT NEOPLASM (2) Hypertension Code(s): I10 - ESSENTIAL (PRIMARY) HYPERTENSION
[2018-12-19] MEDS: oxyCODONE HCL 5 MG TABLET PO PRN ×2 (06:50→18:59)
[2018-12-19] MEDS: ENOXAPARIN NA (PORCINE) 30 MG/0.3 ML DISP.SYRIN SQ SCH (09:20)
[2018-12-19] MEDS ORDERED: FUROSEMIDE 40 MG/4 ML INJECTABLE VIAL IVPUSH ONE (12:42)
--- NOTE | 2018-12-19 12:44 | PN ---
Progress Note (short form) - Note Progress Note: No pain she is tolerating diet no bm today passing flatus no nausea Vital Signs - 24 hr 12/18/18 12/18/18 12/18/18 14:00 19:00 20:46 Temperature 98.9 F 98.8 F Pulse Rate 101 H 102 H Respiratory 20 20 20 Rate Blood Pressure 126/77 135/85 12/19/18 06:00 Temperature 99.1 F Pulse Rate 95 H Respiratory 20 Rate Blood Pressure 136/60 Current Medications Generic Name Dose Route Start Last Admin Trade Name Freq PRN Reason Stop Dose Admin Acetaminophen 1,000 mg 12/16/18 09:58 12/17/18 07:51 Ofirmev Injection - IVPB 1,000 mg Q6H PRN Administration FEVER Dexamethasone Sodium Phosphate 4 mg 12/14/18 13:11 Decadron Injection - IVPUSH ONCE PRN NAUSEA AND/OR VOMITING Diphenhydramine HCl 12.5 mg 12/14/18 13:11 Benadryl Injection - IVPUSH ONCE PRN FOR ITCHING Enoxaparin Sodium 30 mg 12/15/18 10:00 12/19/18 09:20 Lovenox - SQ 30 mg DAILY [facility] Administration Furosemide 20 mg 12/19/18 12:42 Lasix Injection - IVPUSH 12/19/18 12:43 ONCE ONE Ondansetron HCl 4 mg 12/14/18 13:11 Zofran Injection IVPUSH Q4H PRN NAUSEA AND/OR VOMITING Promethazine HCl 12.5 mg 12/14/18 13:11 Phenergan Injection - IVPB Q6H PRN NAUSEA-FOR RESCUE AFTER 15 MIN S1 S2 RRR Lungs clear Abd- soft, NT, BS+ dressing in place edema++ PLAN dc iv fluids OOB Stat dose iv lasix check sono legs to r/o DVT-- pt is on Lovenox sc here dc planning Problem List - Problems (1) Encounter for postoperative follow-up after cancer surgery Code(s): Z08 - ENCNTR FOR FOLLOW-UP EXAM AFTER TRTMT FOR MALIGNANT NEOPLASM (2) Hypertension Code(s): I10 - ESSENTIAL (PRIMARY) HYPERTENSION
--- NOTE | 2018-12-19 13:50 | PATH ---
Surgical Pathology Report Patient Name: WILTON MILLS [facility]. Rec. #: [id number] /Age/Gender: 1965 (Age: 53) / F Account: [id number] Location: [address] [place] [address] Taken: 12/14/2018 Received: 12/14/2018 Reported: 12/19/2018 Physicians: Martin Burrows M.D. Specimen(s) Received A: UTERUS, CERVIX, TUBES, OVARIES B: RECTUM Clinical History Leiomyoma of uterus, rectosigmoid carcinoma Intraoperative Consult Diagnosis Lower anterior resection of rectum, intraoperative gross examination: Distal mucosal margin-3 cm to lesion. Haile Collins M.D., 12/14/18 Final Diagnosis A. UTERUS, CERVIX, TUBES AND OVARIES, TOTAL ABDOMINAL HYSTERECTOMY AND BILATERAL SALPINGO-OOPHORECTOMY(FS): 764 G UTERUS INTRAMURAL LEIOMYOMA(TA). WEAKLY PROLIFERATIVE ENDOMETRIUM. UNREMARKABLE CERVIX. LEFT TUBE WITH PARATUBAL CYST AND FOCAL ENDOSALPINGOSIS. UNREMARKABLE RIGHT FALLOPIAN TUBE. UNREMARKABLE LEFT AND RIGHT OVARY. B. RECTUM, LOW ANTERIOR RESECTION: RESIDUAL INVASIVE ADENOCARCINOMA, MODERATELY DIFFERENTIATED (G2), ULCERATED, IN A BACKGROUND OF FIBROSIS AND CALCIFICATIONS CONSISTENT WITH TREATMENT-RELATED CHANGES, TUMOR REGRESSION SCORE 2 (PARTIAL RESPONSE). TUMOR MEASURES 1.3 CM (MICROSCOPIC DIMENSION). TUMOR INVADES INTO THE MUSCULARIS PROPRIA (T2). NO LYMPHOVASCULAR OR PERINEURAL INVASION IDENTIFIED. SURGICAL MARGINS ARE NEGATIVE. ONE OF SIXTEEN LYMPH NODES WITH METASTATIC CARCINOMA (1/16). PATHOLOGIC STAGE: ypT2 ypN1a SEE INVASIVE SUMMARY BELOW. Comment: Part B, One lymph node with fibrosis and calcifications consistent with treatment related changes. No carcinoma on H&E and confirmed by cytokeratin AE1/3 immunohistochemical stain. Comments Colorectal Carcinoma :Surgical Pathology Cancer Case Summary (Based on AJCC TNM 8 th edition) Procedure _X_ Low anterior resection Tumor Site _X_ Rectum Tumor Size Greatest dimension (centimeters): 1.3 cm (microscopic) Macroscopic Tumor Perforation _X_ Not identified Histologic Type _X_ Adenocarcinoma Histologic Grade _X_ G2: Moderately differentiated Tumor Extension _X_ Tumor invades muscularis propria Margins _X__ All margins are uninvolved by invasive carcinoma, high-grade dysplasia, intramucosal adenocarcinoma, and adenoma Margins examined: proximal, distal, radial Treatment Effect _X__ Present _X__ Residual cancer with evident tumor regression, but more than single cells or rare small groups of cancer cells (partial response, score 2) Lymphovascular Invasion _X__ Not identified Perineural Invasion _X__ Not identified Tumor Deposits _X__ Not identified Regional Lymph Nodes Lymph Node Examination Number of Lymph Nodes Involved: 1 Number of Lymph Nodes Examined: 16 Pathologic Stage Classification (pTNM, AJCC 8th Edition) TNM Descriptors _X_ y (posttreatment) Primary Tumor (pT) _X_ pT2: Tumor invades the muscularis propria Regional Lymph Nodes (pN) _X_ pN1a: One regional lymph node is positive Electronically Signed Tiffanie Mann M.D. Addendum Reported: 12/19/2018 Addendum Diagnosis Immunohistochemical stain performed and interpreted at [facility]. Positive and negative controls (internal if applicable) show appropriate result. Tiffanie Mann M.D. Gross Description A. Received in formalin labeled "uterus, cervix, tubes, ovaries" is a 764 g supracervically amputated uterus with bilateral attached adnexa. The specimen measures 12 cm from superior to inferior, 11 cm from anterior to posterior, and 9 cm from left to right. The unoriented cervix is separately received within the same container. The cervix measures 3 cm in length and averages 2.5 cm in diameter. The ectocervix is abreu campbell, smooth and glistening. The endocervix is unremarkable. The serosa is abreu-pineda and smooth. The endometrial cavity measures 7.5 cm in length and 4 cm from cornu to cornu. The endometrium is abrue and averages 0.1 cm in thickness. The myometrium displays abundant intramural nodules, measuring up to 6.5 cm in greatest dimension. The cut surface of the nodules is abreu and rubbery with whorled architecture. No areas of hemorrhage or necrosis are identified. The remaining myometrium is abreu campbell and measures up to 7 cm in thickness. The left fimbriated fallopian tube measures 4.7 cm in length. The outer surface is pineda purple and smooth. Sectioning reveals an unremarkable lumen. The left ovary measures 2.5 x 1.5 x 0.6 cm. The outer surface is abreu, convoluted and smooth. Sectioning reveals unremarkable ovarian parenchyma. The right fimbriated fallopian tube measures 5 cm in length. The outer surface is pineda purple and smooth. Sectioning reveals an unremarkable lumen. The right ovary measures 2.6 x 1.8 x 0.7 cm. Sectioning reveals unremarkable ovarian parenchyma. Video Game Script Writer sections are submitted in 15 cassettes as follows: 1-2-cervix; 7-1-qbytxupv endomyometrium; 0-6-tkhxhwaji endomyometrium; 2-2-qdengvireq nodules; 10-left fallopian tube fimbria; 11-cross sections of left fallopian tube; 12-left ovary; 13-right fallopian tube fimbria; 14-cross sections of right fallopian tube; 15-right ovary. B. Received fresh labeled "lower anterior resection of rectum," is an 11 cm in length portion of rectosigmoid colon with a stapled proximal mucosal margin and an open distal mucosal margin, per the surgeon. The serosa is abreu-campbell and smooth with abundant attached pericolonic adipose tissue. The mucosa displays a 1.7 x 1.3 cm ill-defined, ulcerated lesion at 3 cm from the distal mucosal margin. The mass is 2.8 cm the radial margin of resection. The remaining mucosa is abreu with normal folds. Sectioning of the pericolonic adipose tissue reveals multiple lymph nodes measuring up to 0.5 cm in greatest dimension. Separately received within the same container is a 5.0 x 0.7 x 0.4 cm portion of bowel with attached suture material, possibly consistent with a donut. An intraoperative gross examination is performed. Video Game Script Writer sections are submitted in 18 cassettes as follows: 1-proximal mucosal margin; 2-distal mucosal margin; 3-radial margin of resection; 4-7-mass; 8-mucosa distal to mass; 9-donut; 10-12-one bisected lymph node each; 13-18-two possible lymph nodes each, 19-20- one lymph node each, 21-23- multiple possible lymph nodes, each. 12/17/201812/17/2018
--- NOTE | 2018-12-19 15:21 | PN ---
Progress Note, Physician - Current Medication List Current Medications: Active Medications Acetaminophen (Ofirmev Injection -) 1,000 mg IVPB Q6H PRN PRN Reason: FEVER Last Admin: 12/17/18 07:51 Dose: 1,000 mg Dexamethasone Sodium Phosphate (Decadron Injection -) 4 mg IVPUSH ONCE PRN PRN Reason: NAUSEA AND/OR VOMITING Diphenhydramine HCl (Benadryl Injection -) 12.5 mg IVPUSH ONCE PRN PRN Reason: FOR ITCHING Enoxaparin Sodium (Lovenox -) 30 mg SQ DAILY [facility] Last Admin: 12/19/18 09:20 Dose: 30 mg Ondansetron HCl (Zofran Injection) 4 mg IVPUSH Q4H PRN PRN Reason: NAUSEA AND/OR VOMITING Promethazine HCl (Phenergan Injection -) 12.5 mg IVPB Q6H PRN PRN Reason: NAUSEA-FOR RESCUE AFTER 15 MIN - Objective Vital Signs: Vital Signs Temperature 98.4 F 12/19/18 09:00 Pulse Rate 100 H 12/19/18 09:00 Respiratory Rate 20 12/19/18 09:00 Blood Pressure 130/72 12/19/18 09:00 O2 Sat by Pulse Oximetry (%) 94 L 12/17/18 21:00 Labs: CBC, BMP 12/18/18 07:15 12/18/18 07:15 Assessment/Plan Surgery: Patient is out of bed , c/o swelling of both legs, upto the knee. Bilateral pitting edema. No calf tenderness. Eating and having regular bowel movement. Pathology report : Primary tumor has regressed , T2: one lymph node positive out of 16. Patient has been on DVT prophylaxis from the time of surgery , with lovenox. Albumin 2.6 gms, Hematocrit 28.6 Continue diet , continue DVT prophylaxis, await venous ultrasound, if positive therapeutic anticoagulation.
[2018-12-19] MEDS ORDERED: oxyCODONE HCL 5 MG TABLET PO PRN (18:27)
[2018-12-20] MEDS: oxyCODONE HCL 5 MG TABLET PO PRN (00:17)
[2018-12-20 05:42] VITALS: TEMP 98.4
[2018-12-20] MEDS: ENOXAPARIN NA (PORCINE) 30 MG/0.3 ML DISP.SYRIN SQ SCH (08:47)
--- NOTE | 2018-12-20 09:33 | PN ---
Progress Note, Physician - Current Medication List Current Medications: Active Medications Acetaminophen (Ofirmev Injection -) 1,000 mg IVPB Q6H PRN PRN Reason: FEVER Last Admin: 12/17/18 07:51 Dose: 1,000 mg Dexamethasone Sodium Phosphate (Decadron Injection -) 4 mg IVPUSH ONCE PRN PRN Reason: NAUSEA AND/OR VOMITING Diphenhydramine HCl (Benadryl Injection -) 12.5 mg IVPUSH ONCE PRN PRN Reason: FOR ITCHING Enoxaparin Sodium (Lovenox -) 30 mg SQ DAILY [facility] Last Admin: 12/20/18 08:47 Dose: 30 mg Ondansetron HCl (Zofran Injection) 4 mg IVPUSH Q4H PRN PRN Reason: NAUSEA AND/OR VOMITING Oxycodone HCl (Roxicodone -) 5 mg PO Q4H PRN PRN Reason: PAIN LEVEL 1-5 Last Admin: 12/20/18 00:17 Dose: 5 mg Oxycodone HCl (Roxicodone -) 10 mg PO Q4H PRN PRN Reason: PAIN LEVEL 6-10 Promethazine HCl (Phenergan Injection -) 12.5 mg IVPB Q6H PRN PRN Reason: NAUSEA-FOR RESCUE AFTER 15 MIN - Objective Vital Signs: Vital Signs Temperature 98.4 F 12/20/18 05:40 Pulse Rate 88 12/20/18 05:40 Respiratory Rate 20 12/20/18 05:40 Blood Pressure 125/74 12/20/18 05:40 O2 Sat by Pulse Oximetry (%) 94 L 12/17/18 21:00 Labs: CBC, BMP 12/18/18 07:15 12/18/18 07:15 Assessment/Plan Surgery: Patient has no complaints. Abdominl wound is clean, Tolerating diet. No calf tenderness, Duplex US; No sign of DVT. Bilateral leg edema, probably secondary to low albumin, Pathology noted. Medical oncolgy upon discharge. Will follow in the office. Discharge as per medical service.
--- NOTE | 2018-12-20 10:39 | DS ---
Physical Examination Vital Signs: Vital Signs Temperature 98.4 F 12/20/18 05:40 Pulse Rate 88 12/20/18 05:40 Respiratory Rate 20 12/20/18 05:40 Blood Pressure 125/74 12/20/18 05:40 O2 Sat by Pulse Oximetry (%) 94 L 12/17/18 21:00 Constitutional: Yes: No Distress, Calm Cardiovascular: Yes: Regular Rate and Rhythm Respiratory: Yes: CTA Bilaterally Gastrointestinal: Yes: Normal Bowel Sounds, Soft. No: Tenderness Edema: No Labs: CBC, BMP 12/18/18 07:15 12/18/18 07:15 Discharge Summary Reason For Visit: LEIOMYOMA OF UTERUS/RECTOSIGMOID CARCINOMA Current Active Problems Encounter for postoperative follow-up after cancer surgery (Acute) Hypertension (Acute) Hospital Course: December 14, patient underwent Low anterior resection of rectal tumor, with rectosigmoid anastamosis , and total abdominal hysterectomy with bilateral salpingo-oophorectomy Postoperative course uneventful, she had a bowel movement, urinating well, tolerating diet Labs noted Patient is stable to be discharged home, she will need to follow up with surgeon , map colorer as well as medical oncologist Condition: Good - Instructions Diet, Activity, Other Instructions: Regular diet, Tylenol/ Motrin for pain, May shower. Follow up in my office, to call [phone]. Disposition: HOME - Home Medications Comprehensive Discharge Medication List: Ambulatory Orders Amlodipine Besylate [Norvasc -] 10 mg PO DAILY 07/26/18 Losartan/Hydrochlorothiazide [Hyzaar 100-25 Tablet] 1 each PO DAILY 07/26/18 Rutin/Hesp/Bioflav/C/[id number] [Bioflex Tablet] 1 each PO DAILY 12/13/18 Ibuprofen [Motrin -] 400 mg PO TID #21 tablet 12/20/18
--- NOTE | 2018-12-20 11:30 | OP ---
DATE OF OPERATION: 12/14/2018 PREOPERATIVE DIAGNOSIS: Leiomyoma of the uterus. POSTOPERATIVE DIAGNOSIS: Leiomyoma of the uterus. PROCEDURE: Total abdominal hysterectomy and bilateral salpingo-oophorectomy. SURGEON: Verona Leija MD HEAD OF HOUSEKEEPING: HEATHER Lazcano ANESTHESIA: General. COMPLICATIONS: None. ESTIMATED BLOOD LOSS: 100 mL. DESCRIPTION OF PROCEDURE: Patient was taken to the operating room where general anesthesia was administered. Patient was then placed in lithotomy position, prepped and draped in proper sterile fashion. A vertical skin incision was made and carried down to the underlying layer of fascia. The fascia was incised in the midline and extended superiorly and inferiorly with the Bovie cautery. The muscle of the anterior abdominal wall were then in the midline by sharp and blunt dissection. The peritoneum was grasped between 2 pickups, elevated, and entered sharply using Metzenbaum scissors. The pelvis was examined, and an enlarged, irregular contoured uterus was found with multiple fibroids. The bowel was packed with moist laparotomy sponges. The uterus was exteriorized, and the round ligaments on both sides were clamped using the LigaSure device, burned, and cut. The anterior lip of the broad ligament was incised along the bladder reflection to the midline from both sides. The bladder was then gently dissected off the lower uterine segment with a sponge stick. The infundibulopelvic ligament on both sides were then clamped using the LigaSure device, burned, and cut. Hemostasis was visualized. The uterine artery was then skeletonized bilaterally, clamped using the LigaSure device, burned then cut. Again, hemostasis was obtained. The uterosacral ligaments were clamped on both sides, burned, and cut using the LigaSure device. Then the cervix and the uterus were amputated with the cautery. The vaginal cuff angles were closed with [id number] stitches of 1-0 Vicryl and was transfixed to the ipsilateral cardinal and uterosacral ligaments. The remainder of the vaginal cuff was closed with interrupted stiches of 1-0 Vicryl [id number] sutures. Hemostasis was assured, and the pelvis was then completely irrigated with warm normal saline. All laparotomy sponges and instruments were removed from the abdomen. Then, the surgeon took over for partial resection of rectum due to rectal cancer. PATHOLOGY: Uterus, cervix, fallopian tubes, and ovaries. Martin DEL [id number]
[2018-12-20 12:22] VITALS: BP 131/84; PULSE 96
== END 2018-12-20 15:08 | disposition home or self-care (01) | DRG 334 ==
LOC: JSAMEDAYSX 06:38 → J6S 15:49
PROVIDERS: ADMIT Obstetrics & Gynecology; ATTEND Obstetrics & Gynecology
PROC: 07TC0ZZ Resection of Pelvis Lymphatic, Open Approach (ICD-10-PCS; 2018-12-14)
PROC: 0UT90ZZ Resection of Uterus, Open Approach (ICD-10-PCS; 2018-12-14)
PROC: 0UT70ZZ Resection of Bilateral Fallopian Tubes, Open Approach (ICD-10-PCS; 2018-12-14)
PROC: 0UT20ZZ Resection of Bilateral Ovaries, Open Approach (ICD-10-PCS; 2018-12-14)
PROC: 0DBP0ZZ Excision of Rectum, Open Approach (ICD-10-PCS; principal; 2018-12-14 08:00)
PROC: 07TB0ZZ Resection of Mesenteric Lymphatic, Open Approach (ICD-10-PCS; 2018-12-14 08:00)
DX: C20 Malignant neoplasm of rectum (principal); D25.9 Leiomyoma of uterus, unspecified; Z08 Encounter for follow-up examination after completed treatment for malignant neoplasm; I10 Essential (primary) hypertension
CPT/HCPCS: 36415; 80048; 80053; 82378; 84702; 85025; 85027; 86850; 86900; 86901; 86922; 88307-TC; 88309-TC; 88329; 93970-TC; 94760; J0131

== ENCOUNTER 2019-01-22 13:03 | Day surgery (SDC) | payer BC, OTHER ==
[2019-01-21 16:45] VITALS: BMI 29.5
[2019-01-22] MEDS ORDERED: PORTA CATH FLUSH 10 ML IVPUSH PRN (14:20)
[2019-01-22] MEDS ORDERED: ACETAMINOPHEN 325 MG TABLET (FP) PO ONE (16:30)
[2019-01-22 16:41] VITALS: TEMP 97.8
[2019-01-22 17:30] VITALS: BP 120/80; PULSE 92
== END 2019-01-22 17:43 | disposition home or self-care (01) ==
LOC: JRADIR 13:03
PROVIDERS: ATTEND Internal Medicine Hematology & Oncology
PROC: 02HV33Z Insertion of Infusion Device into Superior Vena Cava, Percutaneous Approach (ICD-10-PCS; principal; 2019-01-22 14:00)
DX: C20 Malignant neoplasm of rectum (principal)
CPT/HCPCS: 36561; C1788; 77001-TC-FY

== ENCOUNTER 2019-01-24 07:01 | Day surgery (SDC) | payer BC, OTHER ==
[2019-01-24] MEDS ORDERED: PALONOSETRON HCL 0.25 MG/5 ML VIAL IVPUSH ONE (08:00)
[2019-01-24] MEDS ORDERED: DEXAMETHASONE SODIUM PHOSPHATE 20 MG in SODIUM CHLORIDE 50 ML IVPB ONE (08:00)
[2019-01-24] MEDS ORDERED: OXALIPLATIN IV ONE (08:30)
[2019-01-24] MEDS ORDERED: WATER IV ONE (08:30)
[2019-01-24] MEDS ORDERED: DEXTROSE 5% IV ONE (08:30)
[2019-01-24 10:40] LABS: BASO % 0.8 % (0-2.0); EOS % 9.2 % (0-4.5); HEMATOCRIT 37.1 % (32.4-45.2); HEMOGLOBIN 12.1 GM/dL (10.7-15.3); LYMPH % 18.2 % (8-40); MCH 28.5 pg (25.7-33.7); MCHC 32.6 g/dl (32.0-36.0); MEAN CELL VOLUME 87.4 fl (80-96); MEAN PLT VOLUME 8.6 fl (7.5-11.1); MONO % 10.8 % (3.8-10.2); PLATELET COUNT 221 K/MM3 (134-434); RBC 4.24 M/mm3 (3.60-5.2); RDW 14.8 % (11.6-15.6)
[2019-01-24] MEDS ORDERED: ACETAMINOPHEN 325 MG TABLET (FP) PO ONE (10:51)
[2019-01-24 11:12] LABS: ALBUMIN 3.4 g/dl (3.4-5.0); ALK PHOS 104 U/L (45-117); ANION GAP 5 MMOL/L (8-16); BILIRUBIN,TOTAL 0.2 mg/dL (0.2-1); BLOOD UREA NITROGEN 12 mg/dL (7-18); CALCIUM 8.9 mg/dL (8.5-10.1); CHLORIDE 108 mmol/L (98-107); CO2 26 mmol/L (21-32); CREATININE 0.7 mg/dL (0.55-1.3); GLUCOSE,RANDOM 107 mg/dL (74-106); POTASSIUM 3.8 mmol/L (3.5-5.1); SGOT/AST 13 U/L (15-37); SGPT/ALT 22 U/L (13-61); SODIUM 138 mmol/L (136-145); TOT PROT 7.8 g/dl (6.4-8.2)
[2019-01-24 11:14] LABS: ALBUMIN 3.4 g/dl (3.4-5.0); BILIRUBIN,DIRECT 0.1 mg/dL (0.0-0.2); BILIRUBIN,TOTAL 0.2 mg/dL (0.2-1); TOT PROT 7.8 g/dl (6.4-8.2)
[2019-01-24 15:44] VITALS: TEMP 97.6
[2019-01-24 15:55] VITALS: BP 137/82; PULSE 93
[2019-01-24] MEDS ORDERED: PORTA CATH FLUSH 10 ML IVPUSH ONE (15:55)
== END 2019-01-24 16:18 | disposition home or self-care (01) ==
LOC: JONCCHEMO 07:01 → J7W 11:15 → JONCCHEMO 16:18
PROVIDERS: ATTEND Internal Medicine Hematology & Oncology
DX: Z51.11 Encounter for antineoplastic chemotherapy (principal); C20 Malignant neoplasm of rectum
CPT/HCPCS: 36415; 80053; 80076; 83735; 85025; 96375; 96413; 96415; J2469; J9263

== ENCOUNTER 2019-02-14 07:20 | Day surgery (SDC) | payer BC, OTHER ==
[2019-02-14] MEDS ORDERED: FOSAPREPITANT DIMEGLUMINE 150 MG in SODIUM CHLORIDE 145 ML IVPB ONE (08:00)
[2019-02-14] MEDS ORDERED: PALONOSETRON HCL 0.25 MG/5 ML VIAL IVPUSH ONE (08:00)
[2019-02-14] MEDS ORDERED: DEXAMETHASONE SODIUM PHOSPHATE 20 MG in SODIUM CHLORIDE 50 ML IVPB ONE (08:00)
[2019-02-14] MEDS ORDERED: DEXTROSE 5% IV ONE (08:30)
[2019-02-14] MEDS ORDERED: OXALIPLATIN IV ONE (08:30)
[2019-02-14] MEDS ORDERED: WATER IV ONE (08:30)
[2019-02-14 10:39] LABS: HEMATOCRIT 35.5 % (32.4-45.2); HEMOGLOBIN 11.8 GM/dL (10.7-15.3); MCH 28.6 pg (25.7-33.7); MCHC 33.2 g/dl (32.0-36.0); MEAN PLT VOLUME 7.8 fl (7.5-11.1); PLATELET COUNT 280 K/MM3 (134-434); RBC 4.12 M/mm3 (3.60-5.2); RDW 15.4 % (11.6-15.6)
[2019-02-14 11:11] LABS: ALBUMIN 3.4 g/dl (3.4-5.0); ALK PHOS 108 U/L (45-117); ANION GAP 7 MMOL/L (8-16); BILIRUBIN,DIRECT 0.1 mg/dL (0.0-0.2); BILIRUBIN,TOTAL 0.2 mg/dL (0.2-1); BLOOD UREA NITROGEN 10 mg/dL (7-18); CALCIUM 9.1 mg/dL (8.5-10.1); CHLORIDE 105 mmol/L (98-107); CO2 26 mmol/L (21-32); CREATININE 0.6 mg/dL (0.55-1.3); GLUCOSE,RANDOM 85 mg/dL (74-106); MAGNESIUM 2.1 mg/dL (1.8-2.4); POTASSIUM 3.7 mmol/L (3.5-5.1); SGOT/AST 12 U/L (15-37); SGPT/ALT 19 U/L (13-61); SODIUM 138 mmol/L (136-145)
[2019-02-14] MEDS ORDERED: SODIUM CHLORIDE 1,000 ML IV SCH (11:30)
[2019-02-14 12:09] LABS: ANISOCYTOSIS 0; MACROCYTOSIS 0; PLATELET ESTIMATE NORMAL
[2019-02-14] MEDS ORDERED: PORTA CATH FLUSH 10 ML IVPUSH ONE (18:22)
[2019-02-14 18:23] VITALS: BP 120/72; PULSE 83; TEMP 98.5
== END 2019-02-14 13:30 | disposition home or self-care (01) ==
LOC: JONCCHEMO 07:20 → J7W 11:44 → JONCCHEMO 13:30
PROVIDERS: ATTEND Internal Medicine Hematology & Oncology
DX: Z53.8 Procedure and treatment not carried out for other reasons (principal)
CPT/HCPCS: 36415; 80048; 80076; 83735; 85027

== ENCOUNTER 2019-02-21 07:12 | Day surgery (SDC) | payer BC, OTHER ==
[2019-02-21] MEDS ORDERED: PALONOSETRON HCL 0.25 MG/5 ML VIAL IVPUSH ONE (09:00)
[2019-02-21] MEDS ORDERED: FOSAPREPITANT DIMEGLUMINE 150 MG in SODIUM CHLORIDE 145 ML IVPB ONE (09:00)
[2019-02-21] MEDS ORDERED: DEXAMETHASONE SODIUM PHOSPHATE 20 MG in SODIUM CHLORIDE 50 ML IVPB ONE (09:00)
[2019-02-21] MEDS ORDERED: OXALIPLATIN IV ONE (09:30)
[2019-02-21] MEDS ORDERED: WATER IV ONE (09:30)
[2019-02-21] MEDS ORDERED: DEXTROSE 5% IV ONE (09:30)
[2019-02-21 10:37] LABS: BASO % 2.6 % (0-2.0); EOS % 13.7 % (0-4.5); HEMATOCRIT 39.6 % (32.4-45.2); LYMPH % 20.6 % (8-40); MCH 28.2 pg (25.7-33.7); MCHC 32.8 g/dl (32.0-36.0); MEAN PLT VOLUME 8.5 fl (7.5-11.1); MONO % 12.2 % (3.8-10.2); NEUT % 50.9 % (42.8-82.8); PLATELET COUNT 181 K/MM3 (134-434); RDW 16.2 % (11.6-15.6); WHITE BLOOD COUNT 2.5 K/mm3 (4.0-10.0)
[2019-02-21 11:02] LABS: CALCIUM 9.4 mg/dL (8.5-10.1); CREATININE 0.6 mg/dL (0.55-1.3); POTASSIUM 3.7 mmol/L (3.5-5.1)
[2019-02-21 12:14] LABS: ANISOCYTOSIS 1+; MACROCYTOSIS 0; PLATELET ESTIMATE NORMAL
[2019-02-21 12:38] LABS: ALBUMIN 3.7 g/dl (3.4-5.0); BILIRUBIN,DIRECT 0.1 mg/dL (0.0-0.2); BILIRUBIN,TOTAL 0.3 mg/dL (0.2-1); MAGNESIUM 2.3 mg/dL (1.8-2.4); TOT PROT 7.8 g/dl (6.4-8.2)
[2019-02-21 17:03] VITALS: TEMP 97.7
[2019-02-21] MEDS ORDERED: PORTA CATH FLUSH 10 ML IVPUSH ONE (17:03)
[2019-02-21 17:28] VITALS: BP 109/74; PULSE 90
== END 2019-02-21 17:30 | disposition home or self-care (01) ==
LOC: JONCCHEMO 07:12 → J7W 11:56 → JONCCHEMO 17:30
PROVIDERS: ATTEND Internal Medicine Hematology & Oncology
DX: Z51.11 Encounter for antineoplastic chemotherapy (principal); C20 Malignant neoplasm of rectum
CPT/HCPCS: 36415; 80048; 80076; 83735; 85025; 96367; 96375; 96413; 96415; J1453; J2469; J9263

== ENCOUNTER 2019-03-14 06:14 | Day surgery (SDC) | payer BC, OTHER ==
[2019-03-14] MEDS ORDERED: DEXAMETHASONE SODIUM PHOSPHATE 20 MG in SODIUM CHLORIDE 50 ML IVPB ONE (10:00)
[2019-03-14] MEDS ORDERED: PALONOSETRON HCL 0.25 MG/5 ML VIAL IVPUSH ONE (10:00)
[2019-03-14] MEDS ORDERED: FOSAPREPITANT DIMEGLUMINE 150 MG in SODIUM CHLORIDE 150 ML IVPB ONE (10:00)
[2019-03-14] MEDS ORDERED: DEXTROSE 5% IV ONE (10:30)
[2019-03-14] MEDS ORDERED: OXALIPLATIN IV ONE (10:30)
[2019-03-14] MEDS ORDERED: WATER IV ONE (10:30)
[2019-03-14 11:38] LABS: EOS % 9.7 % (0-4.5); HEMOGLOBIN 11.8 GM/dL (10.7-15.3); MCH 28.4 pg (25.7-33.7); MCHC 32.8 g/dl (32.0-36.0); MEAN CELL VOLUME 86.8 fl (80-96); MEAN PLT VOLUME 8.6 fl (7.5-11.1); MONO % 13.6 % (3.8-10.2); NEUT % 57.7 % (42.8-82.8); PLATELET COUNT 256 K/MM3 (134-434); RBC 4.15 M/mm3 (3.60-5.2); RDW 18.4 % (11.6-15.6); WHITE BLOOD COUNT 2.4 K/mm3 (4.0-10.0)
[2019-03-14 11:56] LABS: ALBUMIN 3.6 g/dl (3.4-5.0); BILIRUBIN,DIRECT 0.1 mg/dL (0.0-0.2); BILIRUBIN,TOTAL 0.3 mg/dL (0.2-1); CREATININE 0.6 mg/dL (0.55-1.3); MAGNESIUM 2.1 mg/dL (1.8-2.4); POTASSIUM 3.4 mmol/L (3.5-5.1); TOT PROT 7.1 g/dl (6.4-8.2)
[2019-03-14] MEDS ORDERED: POTASSIUM CHLORIDE TABS 20 MEQ TABLET.ER (FP) PO ONE (12:08)
[2019-03-14 18:18] VITALS: TEMP 97.5
[2019-03-14] MEDS ORDERED: PORTA CATH FLUSH 10 ML IVPUSH ONE (18:25)
[2019-03-14 18:26] VITALS: BP 115/78; PULSE 80
== END 2019-03-14 17:15 | disposition home or self-care (01) ==
LOC: JONCCHEMO 06:14 → J7W 12:10 → JONCCHEMO 17:15
PROVIDERS: ATTEND Internal Medicine Hematology & Oncology
DX: Z51.11 Encounter for antineoplastic chemotherapy (principal); C20 Malignant neoplasm of rectum
CPT/HCPCS: 36415; 80048; 80076; 82378; 83735; 85025; 96367; 96375; 96413; 96415; J1453; J2469; J9263

== ENCOUNTER 2019-04-04 06:32 | Day surgery (SDC) | payer BC, OTHER ==
[2019-04-04] MEDS ORDERED: FOSAPREPITANT DIMEGLUMINE 150 MG in SODIUM CHLORIDE 145 ML IVPB ONE (09:00)
[2019-04-04] MEDS ORDERED: DEXAMETHASONE SODIUM PHOSPHATE 20 MG in SODIUM CHLORIDE 50 ML IVPB ONE (09:00)
[2019-04-04] MEDS ORDERED: PALONOSETRON HCL 0.25 MG/5 ML VIAL IVPUSH ONE (09:00)
[2019-04-04] MEDS ORDERED: OXALIPLATIN IV ONE (09:30)
[2019-04-04] MEDS ORDERED: WATER IV ONE (09:30)
[2019-04-04] MEDS ORDERED: DEXTROSE 5% IV ONE (09:30)
[2019-04-04 10:38] LABS: BASO % 1.5 % (0-2.0); EOS % 8.2 % (0-4.5); HEMATOCRIT 36.4 % (32.4-45.2); HEMOGLOBIN 12.2 GM/dL (10.7-15.3); LYMPH % 17.9 % (8-40); MCH 29.4 pg (25.7-33.7); MCHC 33.6 g/dl (32.0-36.0); MEAN CELL VOLUME 87.7 fl (80-96); MEAN PLT VOLUME 8.3 fl (7.5-11.1); MONO % 12.6 % (3.8-10.2); NEUT % 59.8 % (42.8-82.8); PLATELET COUNT 182 K/MM3 (134-434); RBC 4.15 M/mm3 (3.60-5.2); RDW 23.6 % (11.6-15.6); WHITE BLOOD COUNT 2.5 K/mm3 (4.0-10.0)
[2019-04-04 11:00] LABS: ALBUMIN 3.6 g/dl (3.4-5.0); BILIRUBIN,DIRECT 0.1 mg/dL (0.0-0.2); BILIRUBIN,TOTAL 0.4 mg/dL (0.2-1); BLOOD UREA NITROGEN 9.1 mg/dL (7-18); CALCIUM 8.9 mg/dL (8.5-10.1); CREATININE 0.7 mg/dL (0.55-1.3); MAGNESIUM 2.2 mg/dL (1.8-2.4); POTASSIUM 3.5 mmol/L (3.5-5.1); TOT PROT 6.9 g/dl (6.4-8.2)
[2019-04-04 11:31] LABS: ANISOCYTOSIS 1+; MACROCYTOSIS 0; PLATELET ESTIMATE NORMAL
[2019-04-04 17:13] VITALS: TEMP 98.7
[2019-04-04 17:16] VITALS: BP 127/79; PULSE 90
[2019-04-04] MEDS ORDERED: PORTA CATH FLUSH 10 ML IVPUSH ONE (17:16)
== END 2019-04-04 17:22 | disposition home or self-care (01) ==
LOC: JONCCHEMO 06:32 → J7W 12:06 → JONCCHEMO 17:20
PROVIDERS: ATTEND Internal Medicine Hematology & Oncology
DX: Z51.11 Encounter for antineoplastic chemotherapy (principal); C20 Malignant neoplasm of rectum
CPT/HCPCS: 36415; 80048; 80076; 83735; 85025; 96367; 96375; 96413; 96415; J1453; J2469; J9263

== ENCOUNTER 2019-04-25 05:38 | Day surgery (SDC) | payer BC, OTHER ==
[2019-04-25] MEDS ORDERED: PALONOSETRON HCL 0.25 MG/5 ML VIAL IVPUSH ONE (10:00)
[2019-04-25] MEDS ORDERED: DEXAMETHASONE SODIUM PHOSPHATE 20 MG in SODIUM CHLORIDE 50 ML IVPB ONE (10:00)
[2019-04-25] MEDS ORDERED: FOSAPREPITANT DIMEGLUMINE 150 MG in SODIUM CHLORIDE 150 ML IVPB ONE (10:00)
[2019-04-25] MEDS ORDERED: DEXTROSE 5% IV ONE (10:30)
[2019-04-25] MEDS ORDERED: OXALIPLATIN IV ONE (10:30)
[2019-04-25] MEDS ORDERED: WATER IV ONE (10:30)
[2019-04-25 11:04] LABS: BASO % 0.9 % (0-2.0); EOS % 7.4 % (0-4.5); HEMATOCRIT 35.1 % (32.4-45.2); HEMOGLOBIN 11.9 GM/dL (10.7-15.3); LYMPH % 16.8 % (8-40); MCH 30.3 pg (25.7-33.7); MCHC 33.8 g/dl (32.0-36.0); MEAN CELL VOLUME 89.9 fl (80-96); MEAN PLT VOLUME 8.2 fl (7.5-11.1); MONO % 10.6 % (3.8-10.2); NEUT % 64.3 % (42.8-82.8); RBC 3.91 M/mm3 (3.60-5.2); RDW 24.9 % (11.6-15.6); WHITE BLOOD COUNT 2.6 K/mm3 (4.0-10.0)
[2019-04-25 11:21] LABS: PLATELET COUNT 193 K/MM3 (134-434)
[2019-04-25 11:33] LABS: ALBUMIN 3.5 g/dl (3.4-5.0); BILIRUBIN,TOTAL 0.3 mg/dL (0.2-1); BLOOD UREA NITROGEN 11.8 mg/dL (7-18); CALCIUM 8.9 mg/dL (8.5-10.1); CREATININE 0.7 mg/dL (0.55-1.3); POTASSIUM 3.5 mmol/L (3.5-5.1); TOT PROT 6.7 g/dl (6.4-8.2)
[2019-04-25 12:34] LABS: ANISOCYTOSIS 1+; MACROCYTOSIS 1+; PLATELET ESTIMATE NORMAL
[2019-04-25 17:36] VITALS: TEMP 98.5
[2019-04-25] MEDS ORDERED: PORTA CATH FLUSH 10 ML IVPUSH ONE (17:36)
[2019-04-25 17:37] VITALS: BP 124/80; PULSE 92
== END 2019-04-25 16:45 | disposition home or self-care (01) ==
LOC: JONCCHEMO 05:38 → J7W 12:01 → JONCCHEMO 16:45
PROVIDERS: ATTEND Internal Medicine Hematology & Oncology
DX: Z51.11 Encounter for antineoplastic chemotherapy (principal); C20 Malignant neoplasm of rectum
CPT/HCPCS: 36415; 80053; 82378; 85025; 96367; 96375; 96413; 96415; J1453; J2469; J9263

== ENCOUNTER 2019-05-16 05:37 | Day surgery (SDC) | payer BC, OTHER ==
[2019-05-16] MEDS ORDERED: DEXAMETHASONE SODIUM PHOSPHATE 20 MG in SODIUM CHLORIDE 50 ML IVPB ONE (10:00)
[2019-05-16] MEDS ORDERED: PALONOSETRON HCL 0.25 MG/5 ML VIAL IVPUSH ONE (10:00)
[2019-05-16] MEDS ORDERED: FOSAPREPITANT DIMEGLUMINE 150 MG in SODIUM CHLORIDE 150 ML IVPB ONE (10:00)
[2019-05-16] MEDS ORDERED: WATER IV ONE (10:30)
[2019-05-16] MEDS ORDERED: OXALIPLATIN IV ONE (10:30)
[2019-05-16] MEDS ORDERED: DEXTROSE 5% IV ONE (10:30)
[2019-05-16 10:36] LABS: BASO % 1.1 % (0-2.0); EOS % 8.2 % (0-4.5); HEMOGLOBIN 12.4 GM/dL (10.7-15.3); LYMPH % 19.9 % (8-40); MCH 30.7 pg (25.7-33.7); MCHC 33.6 g/dl (32.0-36.0); MEAN CELL VOLUME 91.3 fl (80-96); MEAN PLT VOLUME 8.1 fl (7.5-11.1); MONO % 14.8 % (3.8-10.2); PLATELET COUNT 175 K/MM3 (134-434); RBC 4.05 M/mm3 (3.60-5.2); RDW 23.4 % (11.6-15.6); WHITE BLOOD COUNT 2.5 K/mm3 (4.0-10.0)
[2019-05-16 11:02] LABS: ALBUMIN 3.6 g/dl (3.4-5.0); BILIRUBIN,DIRECT 0.1 mg/dL (0.0-0.2); BILIRUBIN,TOTAL 0.3 mg/dL (0.2-1); BLOOD UREA NITROGEN 13.7 mg/dL (7-18); CALCIUM 8.9 mg/dL (8.5-10.1); CREATININE 0.6 mg/dL (0.55-1.3); MAGNESIUM 2.1 mg/dL (1.8-2.4); POTASSIUM 3.3 mmol/L (3.5-5.1); TOT PROT 6.9 g/dl (6.4-8.2)
[2019-05-16] MEDS ORDERED: POTASSIUM CHLORIDE ORAL LIQUID 20 MEQ/15 ML PO ONE (12:30)
[2019-05-16] MEDS ORDERED: POTASSIUM CHLORIDE TABS 20 MEQ TABLET.ER (FP) PO ONE (13:00)
[2019-05-16 14:20] LABS: ANISOCYTOSIS 1+; MACROCYTOSIS 0; OVALOCYTE 1+; PLATELET ESTIMATE NORMAL; TEAR DROP CELLS 1+
[2019-05-16] MEDS ORDERED: PORTA CATH FLUSH 10 ML IVPUSH ONE (17:05)
[2019-05-16 17:06] VITALS: BP 130/90; PULSE 96; TEMP 97.6
== END 2019-05-16 16:30 | disposition home or self-care (01) ==
LOC: JONCCHEMO 05:37 → J7W 12:13 → JONCCHEMO 16:30
PROVIDERS: ATTEND Internal Medicine Hematology & Oncology
DX: Z51.11 Encounter for antineoplastic chemotherapy (principal); C20 Malignant neoplasm of rectum
CPT/HCPCS: 36415; 80048; 80076; 83735; 85025; 96366; 96367; 96375; 96413; 96415; J1453; J2469; J9263

== ENCOUNTER → 2019-06-06 | Day surgery (SDC) | payer BC, OTHER ==
[~2019-06-06] MED LIST: DEXAMETHASONE SODIUM PHOSPHATE 20 MG in SODIUM CHLORIDE 50 ML IVPB ONE; DEXTROSE 5% IV ONE; FOSAPREPITANT DIMEGLUMINE 150 MG in SODIUM CHLORIDE 145 ML IVPB ONE; OXALIPLATIN IV ONE; PALONOSETRON HCL 0.25 MG/5 ML VIAL IVPUSH ONE; WATER IV ONE
[2019-06-06 11:09] LABS: BASO % 0.9 % (0-2.0); HEMATOCRIT 35.4 % (32.4-45.2); LYMPH % 20.2 % (8-40); MCH 32.2 pg (25.7-33.7); MCHC 33.9 g/dl (32.0-36.0); MEAN CELL VOLUME 94.7 fl (80-96); MEAN PLT VOLUME 8.1 fl (7.5-11.1); MONO % 14.6 % (3.8-10.2); NEUT % 57.3 % (42.8-82.8); PLATELET COUNT 200 K/MM3 (134-434); RBC 3.74 M/mm3 (3.60-5.2); RDW 20.8 % (11.6-15.6); WHITE BLOOD COUNT 2.5 K/mm3 (4.0-10.0)
[2019-06-06 11:28] LABS: ALBUMIN 3.6 g/dl (3.4-5.0); BILIRUBIN,DIRECT 0.1 mg/dL (0.0-0.2); BILIRUBIN,TOTAL 0.3 mg/dL (0.2-1); BLOOD UREA NITROGEN 13.9 mg/dL (7-18); CALCIUM 8.9 mg/dL (8.5-10.1); CREATININE 0.6 mg/dL (0.55-1.3); MAGNESIUM 2.2 mg/dL (1.8-2.4); POTASSIUM 3.9 mmol/L (3.5-5.1); TOT PROT 7.1 g/dl (6.4-8.2)
[2019-06-06 15:46] LABS: ANISOCYTOSIS 1+; MACROCYTOSIS 1+; PLATELET ESTIMATE NORMAL
== END | disposition home or self-care (01) ==
LOC: JONCCHEMO 06:57
PROVIDERS: ATTEND Internal Medicine Hematology & Oncology
DX: Z53.8 Procedure and treatment not carried out for other reasons (principal)
CPT/HCPCS: 36415; 80048; 80076; 83735; 85025

== ENCOUNTER → 2019-06-12 | Day surgery (SDC) | payer BC, OTHER ==
[2019-06-12 11:49] LABS: BASO % 0.7 % (0-2.0); EOS % 7.1 % (0-4.5); HEMATOCRIT 35.7 % (32.4-45.2); LYMPH % 17.3 % (8-40); MCH 31.7 pg (25.7-33.7); MCHC 33.4 g/dl (32.0-36.0); MEAN CELL VOLUME 94.9 fl (80-96); MONO % 14.6 % (3.8-10.2); NEUT % 60.3 % (42.8-82.8); PLATELET COUNT 190 K/MM3 (134-434); RBC 3.76 M/mm3 (3.60-5.2); RDW 19.4 % (11.6-15.6); WHITE BLOOD COUNT 3.4 K/mm3 (4.0-10.0)
[2019-06-12 12:24] LABS: ALBUMIN 3.6 g/dl (3.4-5.0); BILIRUBIN,DIRECT 0.1 mg/dL (0.0-0.2); BILIRUBIN,TOTAL 0.3 mg/dL (0.2-1); BLOOD UREA NITROGEN 13.4 mg/dL (7-18); CALCIUM 8.9 mg/dL (8.5-10.1); CREATININE 0.6 mg/dL (0.55-1.3); MAGNESIUM 2.3 mg/dL (1.8-2.4); POTASSIUM 3.4 mmol/L (3.5-5.1); TOT PROT 7.1 g/dl (6.4-8.2)
== END | disposition home or self-care (01) ==
LOC: JONCCHEMO 07:07
PROVIDERS: ATTEND Internal Medicine Hematology & Oncology
DX: Z53.8 Procedure and treatment not carried out for other reasons (principal)
CPT/HCPCS: 36415; 80048; 80076; 83735; 85025

== ENCOUNTER → 2019-08-08 | Day surgery (SDC) | payer BC, OTHER ==
[2019-08-08 14:08] LABS: BASO % 1.1 % (0-2.0); EOS % 10.9 % (0-4.5); HEMATOCRIT 38.2 % (32.4-45.2); HEMOGLOBIN 12.7 GM/dL (10.7-15.3); LYMPH % 18.8 % (8-40); MCH 31.5 pg (25.7-33.7); MCHC 33.4 g/dl (32.0-36.0); MEAN CELL VOLUME 94.5 fl (80-96); MEAN PLT VOLUME 8.7 fl (7.5-11.1); NEUT % 59.2 % (42.8-82.8); PLATELET COUNT 202 K/MM3 (134-434); RBC 4.04 M/mm3 (3.60-5.2); RDW 16.9 % (11.6-15.6); WHITE BLOOD COUNT 3.5 K/mm3 (4.0-10.0)
== END | disposition home or self-care (01) ==
LOC: JRADIR 10:07
PROVIDERS: ATTEND Internal Medicine Hematology & Oncology
PROC: 0JPT0XZ Removal of Tunneled Vascular Access Device from Trunk Subcutaneous Tissue and Fascia, Open Approach (ICD-10-PCS; principal; 2019-08-08)
DX: Z45.2 Encounter for adjustment and management of vascular access device (principal); C20 Malignant neoplasm of rectum
CPT/HCPCS: 36415; 36590; 77001-TC-FY; 85025

== ENCOUNTER 2021-11-26 04:33 | Day surgery (SDC) | payer BC, OTHER ==
[2021-11-25 11:59] VITALS: BMI 33.3
[2021-11-26] MEDS ORDERED: MIDAZOLAM HCL 2 MG/2 ML SINGLE DOSE VIAL ONE (08:32)
[2021-11-26] MEDS ORDERED: PROPOFOL 20 ML ONE (08:32)
[2021-11-26] MEDS ORDERED: BUPIVACAINE HCL/PF 0.5% (5MG/ML) 10 ML VIAL ONE (08:45)
[2021-11-26] MEDS ORDERED: LIDOCAINE HCL 1%, 10 MG/ML (20ML VIAL) ONE (08:45)
[2021-11-26] MEDS ORDERED: DEXAMETHASONE SOD PHOSPHATE 4 MG/1 ML VIAL ONE (08:45)
[2021-11-26] MEDS ORDERED: GENTAMICIN SO4 80 MG/2 ML VIAL ONE (09:06)
[2021-11-26] MEDS ORDERED: LIDOCAINE HCL 1%, 10 MG/ML (20ML VIAL) INF ONE (09:11)
[2021-11-26] MEDS ORDERED: BUPIVACAINE HCL/PF 0.5% (5MG/ML) 10 ML VIAL IJ ONE (09:11)
[2021-11-26] MEDS ORDERED: ceFAZolin SODIUM 1 GM VIAL ONE (09:13)
[2021-11-26] MEDS ORDERED: GENTAMICIN SO4 80 MG/2 ML VIAL IVPB ONE (09:29)
[2021-11-26] MEDS ORDERED: BENZOIN/ALOE VERA/STORAX/TOLU 58 ML BOTTLE ONE (09:47)
[2021-11-26 13:23] VITALS: BP 123/78; PULSE 89; TEMP 97.9
== END 2021-11-26 13:05 | disposition home or self-care (01) ==
LOC: JASU-SURG 04:33
PROVIDERS: ATTEND Podiatrist Foot Surgery
PROC: 0QSN04Z Reposition Right Metatarsal with Internal Fixation Device, Open Approach (ICD-10-PCS; principal; 2021-11-26 08:30)
DX: M20.11 Hallux valgus (acquired), right foot (principal)
CPT/HCPCS: 73630-TC-RT-FY; 88304-TC; 88311-TC

== ENCOUNTER 2022-01-21 04:33 | Day surgery (SDC) | payer BC, OTHER ==
[2022-01-20 09:19] VITALS: BMI 33.5
[2022-01-21] MEDS ORDERED: ONDANSETRON 4 MG/2 ML VIAL IVPUSH PRN (09:14)
[2022-01-21] MEDS ORDERED: LACTATED RINGERS SOLUTION 1,000 ML IV SCH (09:15)
[2022-01-21] MEDS ORDERED: DEXAMETHASONE SOD PHOSPHATE 4 MG/1 ML VIAL ONE (09:31)
[2022-01-21] MEDS ORDERED: LIDOCAINE HCL 1%, 10 MG/ML (20ML VIAL) ONE (09:31)
[2022-01-21] MEDS ORDERED: BUPIVACAINE HCL/PF 0.5% (5MG/ML) 10 ML VIAL ONE (09:32)
[2022-01-21] MEDS ORDERED: GENTAMICIN SO4 80 MG/2 ML VIAL ONE (09:43)
[2022-01-21] MEDS ORDERED: MIDAZOLAM HCL 2 MG/2 ML SINGLE DOSE VIAL ONE (09:53)
[2022-01-21] MEDS ORDERED: PROPOFOL 20 ML ONE ×3 (09:53→09:58)
[2022-01-21] MEDS ORDERED: ceFAZolin SODIUM 1 GM VIAL IVPB ONE (09:56)
[2022-01-21] MEDS ORDERED: LIDOCAINE HCL/PF 2% SDV 5ML VIAL ONE (10:00)
[2022-01-21] MEDS ORDERED: ceFAZolin SODIUM 1 GM VIAL ONE (10:00)
[2022-01-21] MEDS ORDERED: BUPIVACAINE HCL/PF 0.5% (5 MG/ML) 30 ML VIAL IJ ONE (10:03)
[2022-01-21] MEDS ORDERED: LIDOCAINE HCL 1%, 10 MG/ML (50 mL VIAL) INF ONE (10:03)
[2022-01-21] MEDS ORDERED: DEXAMETHASONE SOD PHOSPHATE 4 MG/1 ML VIAL NR ONE (10:39)
[2022-01-21] MEDS ORDERED: oxyCODONE HCL 5 MG TABLET PO PRN ×2 (12:13)
[2022-01-21] MEDS ORDERED: ACETAMINOPHEN 325 MG TABLET (FP) PO PRN (12:13)
[2022-01-21 13:49] VITALS: TEMP 97.7
[2022-01-21 13:52] VITALS: BP 118/75; PULSE 85
== END 2022-01-21 15:55 | disposition home or self-care (01) ==
LOC: JASU-SURG 04:33
PROVIDERS: ATTEND Podiatrist Foot Surgery
PROC: 0QSP04Z Reposition Left Metatarsal with Internal Fixation Device, Open Approach (ICD-10-PCS; principal; 2022-01-21 09:30)
DX: M20.5X2 Other deformities of toe(s) (acquired), left foot (principal); M67.874 Other specified disorders of tendon, left ankle and foot
CPT/HCPCS: 73630-TC-LT; 88304-TC; 88311-TC

== ENCOUNTER 2022-02-25 04:12 | Day surgery (SDC) | payer BC, OTHER ==
[2022-02-21 11:52] VITALS: BMI 33.5
[~2022-02-25 04:12] MED LIST changes: +BUPIVACAINE HCL/PF 0.5% (5MG/ML) 10 ML VIAL IJ ONE; -DEXAMETHASONE SODIUM PHOSPHATE 20 MG in SODIUM CHLORIDE 50 ML IVPB ONE; -DEXTROSE 5% IV ONE; -FOSAPREPITANT DIMEGLUMINE 150 MG in SODIUM CHLORIDE 145 ML IVPB ONE; +LIDOCAINE HCL 1%, 10 MG/ML (20ML VIAL) NR ONE; -OXALIPLATIN IV ONE; -PALONOSETRON HCL 0.25 MG/5 ML VIAL IVPUSH ONE; -WATER IV ONE
[2022-02-25] MEDS ORDERED: BUPIVACAINE HCL/PF 0.5% (5MG/ML) 10 ML VIAL ONE (07:33)
[2022-02-25] MEDS ORDERED: LIDOCAINE HCL 1%, 10 MG/ML (20ML VIAL) ONE (07:33)
[2022-02-25] MEDS ORDERED: MIDAZOLAM HCL 2 MG/2 ML SINGLE DOSE VIAL ONE (09:11)
[2022-02-25] MEDS ORDERED: ceFAZolin SODIUM 1 GM VIAL ONE (09:32)
[2022-02-25] MEDS ORDERED: ceFAZolin SODIUM 1 GM VIAL IVPB ONE ×2 (09:45)
[2022-02-25] MEDS ORDERED: DEXAMETHASONE SOD PHOSPHATE 4 MG/1 ML VIAL ONE ×2 (09:45→10:46)
[2022-02-25] MEDS ORDERED: KETOROLAC TROMETHAMINE 30 MG/1 ML VIAL ONE (09:45)
[2022-02-25] MEDS ORDERED: ONDANSETRON 4 MG/2 ML VIAL ONE (09:45)
[2022-02-25] MEDS ORDERED: PROPOFOL 20 ML ONE ×2 (09:50→10:09)
[2022-02-25] MEDS ORDERED: BUPIVACAINE HCL/PF 0.5% (5MG/ML) 10 ML VIAL IJ ONE ×2 (09:54→10:51)
[2022-02-25] MEDS ORDERED: LIDOCAINE HCL 1%, 10 MG/ML (20ML VIAL) NR ONE (09:54)
[2022-02-25] MEDS ORDERED: GENTAMICIN SO4 80 MG/2 ML VIAL ONE (10:38)
[2022-02-25] MEDS ORDERED: GENTAMICIN SO4 80 MG/2 ML VIAL IVPB ONE (10:40)
[2022-02-25] MEDS ORDERED: DEXAMETHASONE SOD PHOSPHATE 4 MG/1 ML VIAL IVPUSH ONE (10:51)
[2022-02-25 12:45] VITALS: BP 103/74; PULSE 89; TEMP 97.5
[2022-02-25] MEDS ORDERED: ONDANSETRON 4 MG/2 ML VIAL IVPUSH PRN (15:17)
== END 2022-02-25 13:30 | disposition home or self-care (01) ==
LOC: JASU-SURG 04:12
PROVIDERS: ATTEND Podiatrist Foot Surgery
PROC: 0JBR0ZZ Excision of Left Foot Subcutaneous Tissue and Fascia, Open Approach (ICD-10-PCS; principal; 2022-02-25 09:30)
DX: D17.24 Benign lipomatous neoplasm of skin and subcutaneous tissue of left leg (principal)
CPT/HCPCS: 73630-TC-LT; 88305-TC